=== PATIENT | female | born 1950 | race Caucasian/White ===

== ENCOUNTER → 2023-12-01 07:15 | Outpatient (REF) | payer OTHER, SELFPAY | LOC: RAD 07:15 | PROVIDERS: ATTENDING PHYSICIAN Student in an Organized Health Care Education/Training Program; FAMILY PHYSICIAN Family Medicine | DX: M25.572 Pain in left ankle and joints of left foot (principal) | CPT/HCPCS: 73700 ==

== ENCOUNTER 2023-12-06 06:24 | Day surgery (SDC) | payer OTHER, SELFPAY ==
[2023-12-06] VITALS (7 sets, daily range): BP systolic 92–106; BP diastolic 70–76; BMI 25.5
[2023-12-06] MEDS: NORMOSOL-R 1000 IV (12:25)
[2023-12-06 13:17] LABS: Blood Urea Nitrogen 20 mg/dl (7-17); Estimated Creatinine Clearance 83 ml/min; Glucose 107 mg/dl (70-99)
[2023-12-06] MEDS: SUBLIMAZE 50 MCG IV ×2 (17:27→17:37)
== END 2023-12-06 18:45 | disposition home or self-care (01) ==
LOC: SDS 06:24
PROVIDERS: ATTENDING PHYSICIAN Student in an Organized Health Care Education/Training Program
DX: S82.872A Displaced pilon fracture of left tibia, initial encounter for closed fracture (principal); W19.XXXA Unspecified fall, initial encounter
CPT/HCPCS: 27828; C1713; 73600; 76000; 82565; 82947; 84520; 85018

== ENCOUNTER → 2024-10-05 07:23 | Outpatient (REF) | payer OTHER, SELFPAY | LOC: RAD 07:23 | PROVIDERS: ATTENDING PHYSICIAN Family Medicine; FAMILY PHYSICIAN Physician Assistant | DX: M54.50 Low back pain, unspecified (principal); M51.360 Other intervertebral disc degeneration, lumbar region with discogenic back pain only; M25.50 Pain in unspecified joint; M25.569 Pain in unspecified knee; M79.643 Pain in unspecified hand | CPT/HCPCS: 72110; 73130; 73564 ==

== ENCOUNTER 2024-10-10 10:15 | Emergency (ER) | payer OTHER, SELFPAY ==
[2024-10-10 10:27] VITALS: BP 130/90
[2024-10-10 12:00] VITALS: BP 125/82
[2024-10-10 12:06] LABS: % Basophils 0.6 % (0-2); % Immature Granulocytes 0.5 % (0-0.5); % Lymphocytes 18.2 % (20.5-51.1); % Monocytes 10.2 % (1.7-9.3); % Neutrophils 65.5 % (42.2-75.2); Absolute Eosinophils 0.3 10^3/uL (0-0.7); Absolute Lymphocytes 1.2 10^3/uL (1.2-3.4); Absolute Monocytes 0.7 10^3/uL (0.1-0.6); Absolute Neutrophils 4.2 10^3/uL (1.4-6.5); Hematocrit 38.9 % (37.0-47.0); Hemoglobin 12.9 g/dL (12.0-16.0); Mean Corp Hgb Conc. 33.2 g/dL (33.0-37.0); Mean Corpuscular Hgb 32.4 pg (27.0-31.0); Mean Corpuscular Volume 97.7 fL (81.0-99.0); Mean Platelet Volume 9.8 fL (7.4-10.4); Nucleated Red Blood Cells % 0 %; Platelet Count 178 10^3/uL (130-400); Red Blood Cell Count 3.98 10^6/uL (4.20-5.40); Red Cell Dist. Width 17.2 % (11.5-14.5); White Blood Cell Count 6.4 10^3/uL (4.8-10.8)
[2024-10-10 13:12] LABS: ALT (SGPT) 19 U/L (0-35); AST (SGOT) 37 U/L (14-36); Albumin 3.5 g/dl (3.5-5.0); Alkaline Phosphatase 69 U/L (38-126); Blood Urea Nitrogen 16 mg/dl (7-17); Carbon Dioxide 27 mmol/L (22-30); Chloride 104 mmol/L (98-107); Glucose 109 mg/dl (70-99); Potassium 4.3 mmol/L (3.5-5.1); Sodium 139 mmol/L (135-145); Total Bilirubin 0.8 mg/dl (0.2-1.3); Total Protein 6.1 g/dl (6.3-8.2); eGFR > 60.00
[2024-10-10 14:10] LABS: Erythrocyte Sed Rate 13 mm/hour (0-20)
--- NOTE | 2024-10-10 14:36 | ED.GENMED ---
History of Present Illness
<Dalton Reyna MD - Last Filed: 10/10/24 14:40>
General
Chief Complaint: Back Pain
Time Seen by Provider: 10/10/24 11:18
<Kieran Burton PA-C - Last Filed: 10/10/24 15:39>
General
Source: patient
Exam Limitations: none
History of Present Illness
History of Present Illness:
74-year-old female with history of breast cancer presents complaining of worsening lower back pain with associated progressively worsening weakness and numbness to the legs bilaterally. She denies any bowel or bladder dysfunction. She denies any
recent fever. She states she has been shuffling while walking. She talked to her doctor and doctor sent her in for an MRI of her back. She tried ibuprofen for her back discomfort which helped somewhat but she is concerned about the progressive
numbness and weakness to the legs. She states the numbness started in the lower aspect of her legs and traveled up from there.
Past History
<Dalton Reyna MD - Last Filed: 10/10/24 14:40>
Past History
ED Past Medical History: Asthma, Cancer and HTN
ED Past Surgical History: None and Other
Social History
Tobacco: Non-smoker
Alcohol: Occasional
Drug: None
Personal:
Living: with family
Employment: Retired
Family History
Family History: Other (Noncontributory)
Phy Exam
<Kieran Burton PA-C - Last Filed: 10/10/24 15:39>
Physical Exam
Physical Exam:
General: Well-appearing female no acute respiratory distress
HEENT: Normocephalic atraumatic
Heart: Regular rate and rhythm no murmurs
Lungs: Clear no wheeze
Neurologic exam: Alert and oriented. Patient walks with a shuffling gait but has to lean against the wall to do so. She has 4 out of 5 weakness diffusely about her legs. Bilateral patellar reflexes are 1+ Achilles reflexes are diminished.
Sensation to light touch bilateral lower extremities. No clonus.
Skin is warm no rash
Course
<Dalton Reyna MD - Last Filed: 10/10/24 14:40>
Orders/Labs/Results
Orders:
Orders
10/10/24 11:50
CRP [C-Reactive Protein] Urgent
Complete Blood Count/With Diff Urgent
Sed Rate [Erythrocyte Sed Rate] Urgent
10/10/24 11:53
MR Lumbar Without Contrast Urgent
Comment:
Reason For Exam: back pain, leg weakness, gait abnormality
Recent pill cam endoscopy?: No
10/10/24 12:35
Comprehensive Metabolic Panel Urgent
10/10/24 14:42
NEUROLOGY CONSULT Urgent
Consulting Provider: Melvin Sanchez
Was physician already notified: Yes
Reason for consult: weakness
10/10/24 17:32
Pft Nif [RESP] Urgent
Vital Capacity [RESP] Urgent
Quantity: 1
Abnormal Lab Results
10/10/24 10/10/24
11:50 12:35
RBC 3.98 L 10^6/uL
(4.20-5.40)
MCH 32.4 H pg
(27.0-31.0)
RDW 17.2 H %
(11.5-14.5)
Absolute Monos (auto) 0.7 H 10^3/uL
(0.1-0.6)
Lymphocytes % 18.2 L %
(20.5-51.1)
Monocytes % 10.2 H %
(1.7-9.3)
Glucose 109 H mg/dl
(70-99)
AST 37 H U/L
(14-36)
C-Reactive Protein 12.60 H mg/L
(0.0-10.00)
Total Protein 6.1 L g/dl
(6.3-8.2)
10/10/24 11:50
10/10/24 12:35
Vital Signs
Initial and Last Documented VS:
Initial Vital Signs
Temp Pulse Resp BP Pulse Ox
98.4 F 99 16 130/90 96
10/10/24 10:27 10/10/24 10:27 10/10/24 10:27 10/10/24 10:27 10/10/24 10:27
Last Documented Vital Signs
Temp Pulse Resp BP Pulse Ox
98.4 F 101 18 125/82 98
10/10/24 10:27 10/10/24 18:21 10/10/24 18:21 10/10/24 18:21 10/10/24 18:21
<Kieran Burton PA-C - Last Filed: 10/10/24 15:39>
Orders/Labs/Results
Orders:
Orders
10/10/24 11:50
CRP [C-Reactive Protein] Urgent
Complete Blood Count/With Diff Urgent
Sed Rate [Erythrocyte Sed Rate] Urgent
10/10/24 11:53
MR Lumbar Without Contrast Urgent
Comment:
Reason For Exam: back pain, leg weakness, gait abnormality
Recent pill cam endoscopy?: No
10/10/24 12:35
Comprehensive Metabolic Panel Urgent
10/10/24 14:42
NEUROLOGY CONSULT Urgent
Consulting Provider: Melvin Sanchez
Was physician already notified: Yes
Reason for consult: weakness
10/10/24 17:32
Pft Nif [RESP] Urgent
Vital Capacity [RESP] Urgent
Quantity: 1
Abnormal Lab Results
10/10/24 10/10/24
11:50 12:35
RBC 3.98 L 10^6/uL
(4.20-5.40)
MCH 32.4 H pg
(27.0-31.0)
RDW 17.2 H %
(11.5-14.5)
Absolute Monos (auto) 0.7 H 10^3/uL
(0.1-0.6)
Lymphocytes % 18.2 L %
(20.5-51.1)
Monocytes % 10.2 H %
(1.7-9.3)
Glucose 109 H mg/dl
(70-99)
AST 37 H U/L
(14-36)
C-Reactive Protein 12.60 H mg/L
(0.0-10.00)
Total Protein 6.1 L g/dl
(6.3-8.2)
10/10/24 11:50
10/10/24 12:35
Vital Signs
Initial and Last Documented VS:
Initial Vital Signs
Temp Pulse Resp BP Pulse Ox
98.4 F 99 16 130/90 96
10/10/24 10:27 10/10/24 10:27 10/10/24 10:27 10/10/24 10:27 10/10/24 10:27
Last Documented Vital Signs
Temp Pulse Resp BP Pulse Ox
98.4 F 101 18 125/82 98
10/10/24 10:27 10/10/24 18:21 10/10/24 18:21 10/10/24 18:21 10/10/24 18:21
<Cher Gusman DO - Last Filed: 10/10/24 20:02>
Orders/Labs/Results
Orders:
Orders
10/10/24 11:50
CRP [C-Reactive Protein] Urgent
Complete Blood Count/With Diff Urgent
Sed Rate [Erythrocyte Sed Rate] Urgent
10/10/24 11:53
MR Lumbar Without Contrast Urgent
Comment:
Reason For Exam: back pain, leg weakness, gait abnormality
Recent pill cam endoscopy?: No
10/10/24 12:35
Comprehensive Metabolic Panel Urgent
10/10/24 14:42
NEUROLOGY CONSULT Urgent
Consulting Provider: Melvin Sanchez
Was physician already notified: Yes
Reason for consult: weakness
10/10/24 17:32
Pft Nif [RESP] Urgent
Vital Capacity [RESP] Urgent
Quantity: 1
Abnormal Lab Results
10/10/24 10/10/24
11:50 12:35
RBC 3.98 L 10^6/uL
(4.20-5.40)
MCH 32.4 H pg
(27.0-31.0)
RDW 17.2 H %
(11.5-14.5)
Absolute Monos (auto) 0.7 H 10^3/uL
(0.1-0.6)
Lymphocytes % 18.2 L %
(20.5-51.1)
Monocytes % 10.2 H %
(1.7-9.3)
Glucose 109 H mg/dl
(70-99)
AST 37 H U/L
(14-36)
C-Reactive Protein 12.60 H mg/L
(0.0-10.00)
Total Protein 6.1 L g/dl
(6.3-8.2)
10/10/24 11:50
10/10/24 12:35
Vital Signs
Initial and Last Documented VS:
Initial Vital Signs
Temp Pulse Resp BP Pulse Ox
98.4 F 99 16 130/90 96
10/10/24 10:27 10/10/24 10:27 10/10/24 10:27 10/10/24 10:27 10/10/24 10:27
Last Documented Vital Signs
Temp Pulse Resp BP Pulse Ox
98.4 F 101 18 125/82 98
10/10/24 10:27 10/10/24 18:21 10/10/24 18:21 10/10/24 18:21 10/10/24 18:21
<Kieran Burton PA-C - Last Filed: 10/10/24 15:39>
MDM/Problems Addressed
Differential Diagnosis Includes:
Patient with lower back pain history of breast cancer and now progressive weakness and numbness to the legs. With symptoms concerning for cauda equina or space-occupying lesion in the lumbar spine versus epidural hematoma. No fever to suggest
infectious source. Discussed with emergency room attending and ordered MRI of the lumbar spine. Neurology consulted.
<Cher Gusman DO - Last Filed: 10/10/24 20:02>
*Critical Care Note
Total Time (30-74mins, 75-104mins- exclusive of procedures): Not Applicable
<Cher Gusman DO - Last Filed: 10/10/24 20:02>
Update Note
Update Note:
Attending Signout Note (Cher Gusman DO)
16:00 -assuming care of patient, 74-year-old female with prior history of breast cancer presenting for low back pain with progressively worsening symptoms. Patient reports for the past week she has had worsening weakness and numbness to her lower
extremities, sent in by her doctor for concern of central spinal process. On exam noted to have diminished strength and sensation to bilateral lower extremities with decreased reflexes. This reason patient pending MRI of the lumbar spine and
neurology consultation. Patient without any bowel or bladder symptoms.
17:40 -MRI returned with disc protrusion from L2-L3 with some central canal stenosis. There is also recess stenosis from L5-S1 with slight compression of the left S1 nerve root. No significant sign of cord compression. No fractures. On
reassessment, patient is able to walk. She notes that her main concern is numbness to her legs that started in her feet and has since traveled up her legs. Denies any significant respiratory symptoms. 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
Guillain-Leal� given her symptoms. Additionally he felt that patient was short of breath. Patient denying respiratory symptoms, however does get dyspneic with talking. Patient states her baseline. Patient advised admission by neurology and
myself for further testing including lumbar puncture, EMG. She is adamantly declining. 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 She understands the risk of Guillain-Leal� including eventual paralysis and respiratory arrest. She would like to go home
for follow-up. Explained that if her symptoms are continuing to travel upward with additional respiratory symptoms, immediate return to the emergency department. Patient and verbalizing understanding. Patient will sign out AGAINST MEDICAL
ADVICE.
ED Attending Note
<Dalton Reyna MD - Last Filed: 10/10/24 14:40>
ED Attending Note
Patient seen and examined by attending physician: Yes
ED Attending Note:
I have seen and evaluated the patient with a [id number] encounter. I have spoken to the advance practicer provider and involved in the medical history, the physical exam, medical decision making.
Evaluation and management service: agree unless noted differently below.
Results interpretation: agree unless noted differently below.
Focused HPI: 74-year-old female with history as noted presents to the ER for evaluation of back pain, leg weakness and numbness. Patient says that she has had back pain for a year diagnosed as arthritis however the past few weeks she feels it is
marcella worse�she says the pain is so bad that she cannot even get up to do normal activities like go to the grocery store over the past few weeks. She says that over the past 2 weeks she has noticed progressive numbness and weakness in her legs.
She says that initially it started as very mild distal numbness on the dorsum of the feet and over the past few days she has had numbness of the entire legs bilaterally up to her lower abdomen and significant weakness and trouble walking. She
discussed with her PCP who referred her to the emergency room for assessment. She denies any incontinence of bowel or bladder. She denies any fall or trauma. She has not had any fever or chills. Denies any other complaints.
Physical exam: Awake alert not in distress. She has some mild tenderness in the lower thoracic/upper lumbar spine paraspinal region; she has tenderness L5-S1 midline; patient walks with a shuffling gait. She has weakness on dorsiflexion of the
feet left greater than right as well as some weakness on flexion at the hip and slightly diminished DTRs patellar and bilateral lower extremities.
Medical Decision Makin-year-old female presents with increasing back pain, weakness and numbness in the legs, ambulatory dysfunction�chronic pain worse over the past few weeks and numbness and weakness progressive x 2 weeks. Vitals and exam as
above. Will plan for MRI of the lumbar spine. Send screening labs and inflammatory markers. Consult neurology. Reassess after the above.
-
Portions of this chart may have been created with voice recognition software.� Occasional wrong word or��sound alike� substitutions may have occurred due to the inherent limitations of voice recognition software.
Discharge Plan
Departure
Patient Disposition: Against Medical Advice
Date of Disposition: 10/10/24
Time of Disposition: 17:46
Patient with high blood pressure during this ER visit?: Yes
Condition: Serious
Discharge Problem:
Bilateral leg numbness
Instructions: Herniated Disc (DC), Guillain-[place] Syndrome (DC)
Prescriptions:
New
oxycodone-acetaminophen [Percocet] 5-325 mg tablet
1 tab PO Q8H PRN (Reason: Pain) Qty: 6 0RF
No Action
sertraline 100 MG tablet
100 mg PO DAILY
naproxen sodium [Aleve] 220 MG tablet
220 mg PO PRN PRN (Reason: pain)
clonazepam 1 MG tablet
1 mg PO PRN PRN (Reason: sleep)
amlodipine 10 MG tablet
10 mg PO DAILY
albuterol sulfate 18 GM HFA aerosol inhaler
2 puff IH PRN PRN (Reason: asthma)
prednisone 5 mg Tablet
5 mg PO DAILY
omeprazole 20 mg Capsule,Delayed Release(Dr/Ec)
20 mg PO DAILY
epinephrine [Epi E-Z Pen] 0.3 mg/0.3 mL Auto-Injector
0.3 mg IM DIRECTED
Vitamin D3
1 dose PO DAILY
Referrals:
Kuldeep Kwong DO [Active] -
Stevenson Nguyen DO [Family Provider] -
Activity Restrictions/Additional Instructions:
You were seen in the emergency department for numbness to her extremities
You had an MRI that did show some disc protrusions in your back which are likely causing your back pain and may be causing some numbness to your your lower extremities. However, you were additionally seen by neurology with valid concerns of
Guillain-Leal� syndrome, which is a condition that can cause paralysis and difficulty breathing. You were advised to stay in the hospital for further testing including a lumbar puncture and muscle testing called EMG. You declined understanding the
risk that your numbness could worsen, causing paralysis and inability to breathe on your own which is a medical emergency. Please return immediately to the emergency department with any progression of symptoms or if you change your mind regarding
admission.
Please follow-up closely with your primary care physician.
Additionally return to the emergency department for any development of chest pain, difficulty breathing, abdominal pain with persistent vomiting and inability to tolerate food or liquid by mouth (concern for dehydration), weakness, headache or
confusion, fever greater than 100.4, or any additional symptoms that are concerning to you.
Thank you for choosing [facility].
Interventions
Interventions:
*Risk Screen - Suicide Last Done: 10/10/24 10:27
*General Assessment Last Done: 10/10/24 10:27
*Neglect/Abuse Screening Last Done: 10/10/24 10:27
ED- Fall Risk Assessment Last Done: 10/10/24 11:07
*ED COVID-19 Vaccine History Last Done: 10/10/24 10:27
*Nursing Disposition Last Done: 10/10/24 18:21
ED-Musculoskeletal Assessment Last Done: 10/10/24 11:07
Discharge Date and Time
Discharge Date/Time: 10/10/24 18:22
Print Language: TURKMEN
--- NOTE | 2024-10-10 17:52 | CON.NEURO ---
Neuro Assessment/Plan
Assessment
MRI lumbar showing L2-L3 spinal stenosis, disc bulge; left S1 pinched nerve root
74 year old woman with longstanding back pain presenting with 10 days of ascending weakness/numbness.
I have serious concerns for GBS, and with single breath count to 21, I have concerns for respiratory involvement.
I spoke with her about admission for EMG and possible treatment with IVIG, she does not want to be admitted and understands risks including worsening weakness to the point of paralysis, and worsening of respiratory function
Plan
check NIF/vital capacity
spoke to patient about returning if her symptoms worsen
Consultation
Order
Date of Consultation: 10/10/24
Requesting Provider:
Reason for Consult:
Subjective/Objective
Subjective Data
Date of Service: October 10, 2024
74 year old woman with longstanding back pain, recently worsening. 10 days of weakness, numbness starting in her feet and ascending. shuffling when she walks the past few days.
denies bowel or bladder symptoms, denies speech or respiratory symptoms
Objective Data
Vital Signs
Temp Pulse Resp BP Pulse Ox
36.9 C 99 16 130/90 96
10/10/24 10:27 10/10/24 10:27 10/10/24 10:27 10/10/24 10:27 10/10/24 10:27
Lab Results
10/10/24 11:50
10/10/24 12:35
Sodium 139 mmol/L (135-145) 10/10/24 12:35
Potassium 4.3 mmol/L (3.5-5.1) 10/10/24 12:35
BUN 16 mg/dl (7-17) 10/10/24 12:35
Glucose 109 mg/dl (70-99) H 10/10/24 12:35
Calcium 9.0 mg/dl (8.4-10.2) 10/10/24 12:35
Patient Allergies
bee venom protein (honey bee) Allergy (Verified 10/10/24 10:30)
Swelling, rash
cat dander Allergy (Verified 10/10/24 10:30)
runny nose,itchy eyes
codeine Allergy (Verified 10/10/24 10:30)
Hives
house dust mite Allergy (Verified 10/10/24 10:30)
runny nose,itchy eyes
nut - unspecified Allergy (Verified 10/10/24 10:30)
THROAT CLOSES WITH MACADAMIA NUTS
Sulfa (Sulfonamide Antibiotics) Allergy (Verified 10/10/24 10:30)
SEE BELOW
Physical Exam
-
AAOx3, speech clear, language intact
face symmetric
full strength b/l UE, 4/5 strength b/l LE, tone decreased
decreased pin prick below T8
reflexes 1+ upper, 1+ left knee, absent right knee, absent ankles
Medications
-
Home Medications
�Medication �Instructions �Recorded
naproxen sodium 220 mg tablet 220 mg PO PRN PRN pain 05/16/14
(Aleve)
sertraline 100 mg tablet 100 mg PO DAILY 05/16/14
albuterol sulfate 90 mcg/actuation 2 puff IH PRN PRN asthma 12/12/20
aerosol inhaler
amlodipine 10 mg tablet 10 mg PO DAILY 12/12/20
clonazepam 1 mg tablet 1 mg PO PRN PRN sleep 12/12/20
omeprazole 20 mg capsule,delayed 20 mg PO DAILY 07/27/23
release
prednisone 5 mg tablet 5 mg PO DAILY PMR 07/27/23
Vitamin D3 1 dose PO DAILY 12/03/23
epinephrine 0.3 mg/0.3 mL 0.3 mg IM DIRECTED bee stings 12/03/23
injection, auto-injector
[2024-10-10 18:21] VITALS: BP 125/82
== END 2024-10-10 18:22 | disposition left against medical advice (07) ==
LOC: EMR 10:15
PROVIDERS: Emergency Medicine; Physician Assistant; CONSULT PHYSICIAN Psychiatry & Neurology Clinical Neurophysiology; EMERGENCY PHYSICIAN Student in an Organized Health Care Education/Training Program; FAMILY PHYSICIAN Family Medicine
DX: R20.0 Anesthesia of skin (principal); I10 Essential (primary) hypertension; Z85.3 Personal history of malignant neoplasm of breast
CPT/HCPCS: 99284; 72148; 80053; 85025; 85652; 86140

== ENCOUNTER → 2024-11-14 09:30 | Outpatient (REF) | payer OTHER, SELFPAY | LOC: WDC 09:30 | PROVIDERS: ATTENDING PHYSICIAN Family Medicine | DX: N63.10 Unspecified lump in the right breast, unspecified quadrant (principal); N63.13 Unspecified lump in the right breast, lower outer quadrant | CPT/HCPCS: 76642; 77062; 77066 ==

== ENCOUNTER → 2024-11-29 10:52 | Outpatient (REF) | payer OTHER, SELFPAY | LOC: RAD 10:52 | PROVIDERS: ATTENDING PHYSICIAN Family Medicine | DX: Z13.820 Encounter for screening for osteoporosis (principal) | CPT/HCPCS: 77080 ==

== ENCOUNTER 2025-04-12 18:23 | Inpatient (IN) | payer OTHER, SELFPAY ==
[2025-04-12] VITALS (16 sets, daily range): BP systolic 86–118; BP diastolic 40–91; BMI 25.5
[2025-04-12 16:04] LABS: ALT (SGPT) 21 U/L (0-35); AST (SGOT) 26 U/L (14-36); Albumin 3.6 g/dl (3.5-5.0); Alkaline Phosphatase 116 U/L (38-126); Blood Urea Nitrogen 12 mg/dl (7-17); Calcium 8.1 mg/dl (8.4-10.2); Carbon Dioxide 20 mmol/L (22-30); Chloride 106 mmol/L (98-107); Estimated Creatinine Clearance 60 ml/min; Glucose 99 mg/dl (70-99); Potassium 4.2 mmol/L (3.5-5.1); Sodium 137 mmol/L (135-145); Total Protein 6.4 g/dl (6.3-8.2); eGFR > 60.00
[2025-04-12 16:09] LABS: Hematocrit 41.5 % (37.0-47.0); Hemoglobin 13.9 g/dL (12.0-16.0); Mean Corp Hgb Conc. 33.5 g/dL (33.0-37.0); Mean Corpuscular Volume 97.4 fL (81.0-99.0); Nucleated Red Blood Cells % 0.2 %; Red Cell Dist. Width 14.5 % (11.5-14.5)
[2025-04-12 16:20] LABS: Troponin I 0.132 ng/ml
--- NOTE | 2025-04-12 16:50 | ED.GENMED ---
History of Present Illness
General
Chief Complaint: Breathing Problem
Source: patient
Exam Limitations: none
Time Seen by Provider: 04/12/25 15:36
Nursing documentation reviewed up to this point in time: agreed with
History of Present Illness
History of Present Illness:
75-year-old female with a past medical history of hypertension, asthma/COPD, history of breast cancer who presents to the emergency department for evaluation of shortness of breath and rib pain. Patient reports that about a month ago she had a
mechanical fall. She says she fell forward and grabbed onto a chair and hit her left ribs on the chair as she fell. She says she has had pain in the left ribs since although it seems to be generally improving. Over the past week or so she started
to develop increasing shortness of breath. Breathing was worsening which prompted ER visit. She has had mild cough. She denies any fever or chills at present although she reports 2 weeks ago she had 48-hour episode of fever associated with
vomiting and diarrhea. GI symptoms have resolved. She has not noticed any swelling or pain in the legs. She denies any other acute complaints. She denies any head strike from fall, denies being on any blood thinners.
Past History
Past History
ED Past Medical History: Asthma, Cancer and HTN
ED Past Surgical History: None and Other
Social History
Tobacco: Non-smoker
Alcohol: Occasional
Drug: None
Personal:
Living: with family
Employment: Retired
Family History
Family History: Other (Noncontributory)
Review of Systems
Review of Systems
All Other Systems: ROS reviewed and negative except as documented in HPI and ROS
Constitutional: Denies fever or chills
Respiratory: Reports cough and trouble breathing
Cardiac: Reports chest pain
ABD/GI: Denies abdominal pain, nausea, vomiting or diarrhea
: Denies flank pain
Musculoskeletal: Denies joint pain, neck pain or back pain
Neurological: Denies dizzy or headache
Phy Exam
Physical Exam
Physical Exam:
General: Awake, alert, oriented x3; mild respiratory distress
Head: Normocephalic, atraumatic
Eyes: Conjunctiva normal, PERRL bilaterally
Throat: Airway intact, handling secretions
Neck: Trachea midline, no cervical spine tenderness, no JVD
Lungs: Patient has tachypnea, conversationally dyspneic; she is hypoxic requiring 2 L nasal cannula; she has expiratory wheezing most pronounced at the lung bases
Heart: Tachycardia with regular rhythm, no murmurs, gallops, or rubs; mild left anterior lower rib tenderness; no bruising noted, no crepitus
Abd: Soft, non distended, nontender
Neuro: Grossly intact
Skin: no rash
Extremities: Atraumatic, no edema in extremities, equal pulses in all extremities
Scores
Heart Failure Risk
Heart Failure Risk Score: Not Applicable
Heart Score for Chest Pain Patients
STEMI patient?: Not applicable
Withdrawal Assessment of Alcohol
Withdrawal Assessment Completed?: Not applicable
Course
Orders/Labs/Results
Orders:
Orders
04/12/25 15:40
Electrocardiogram (*1) Urgent
Reason for Study: Shortness of Breath
EKG- Treatment ONCE
04/12/25 15:41
CMP [Comprehensive Metabolic Panel] Urgent
Complete Blood Count/With Diff Urgent
NT-proBNP Urgent
Comment: ADD ON
Troponin I Urgent
04/12/25 15:49
CR Chest - 2 Views Urgent
Comment:
Reason For Exam: cough, sob
04/12/25 16:33
Add On- LAB Urgent
Tests Added?: pro BNP
CT Chest PE Study Urgent
Comment:
Reason For Exam: chest pain, hypoxic, SOB
04/12/25 16:53
Ipratropium/Albuterol Sulfate [Duoneb] 3 ml INH R NOW STA
04/12/25 17:15
PT/INR [Prothrombin Time] Urgent
PTT Urgent
Heparin 6,100 units IV NOW STA
Heparin 00746 Units/250 ml 25,000 units in 250 ml IV PER PROTOCOL
Weight to be used for heparin protocol in kilograms (kg):: 76.1
Protocol:: DVT/PE
PTT Goal Range to be used:: PTT 73 to 111 seconds
Order type:: Initial
INITIAL Infusion Dose (UNITS/KG/hr) & then follow protocol:: 18 units/kg/hr
Infusion Dose in UNITS/hr & then follow protocol (UNITS/hr):: 1,400
INFUSION RATE in mL/hr & then follow protocol (mL/hr):: 14
For DVT/PE algorithm, re-bolus for low PTT?: Yes
PTT less than or equal to 64 seconds:: Re-bolus 80 units/kg (max 10,000units). Increase by 300 units/hr
(+ 3mL/hr)
PTT 64.1 to 72.9 seconds:: Re-bolus 40 units/kg (max 5,000 units). Increase by 200 units/hr
(+ 2mL/hr)
PTT 73 to 111 seconds:: Target Range. No change in rate.
PTT 111.1 to 130.9 seconds:: Decrease rate by 200 units/hr (- 2 mL/hr)
PTT 131 to 199.9 seconds:: HOLD for 1 hr. Then decrease by 200 units/hr (- 2mL/hr)
PTT greater than or equal to 200 seconds:: HOLD for 2 hrs & Notify Provider. Then decrease by 300 units/hr
(- 3mL/hr)
Lab follow-up:: Each change, PTT q6h until 2 consecutive are therapeutic. Then
PTT daily.
Nursing to Place Non Medication Order As Directed
Physician Order: PTT 6 hours after initial start of Heparin infusion
04/12/25 17:25
Heparin 3,000 units IV PRN PRN
Heparin 6,100 units IV PRN PRN
04/12/25 17:36
[facility]AD CONSULT Urgent
Consulting Provider: Haris Reese
Was physician already notified: Yes
Procedure being ordered, including laterality if applicable: catheter directed thrombolysis
Acknowledgement that appropriate orders are entered: Yes
PULMONARY CONSULT Urgent
Consulting Provider: Krystyna Johnson
Was physician already notified: Yes
Abnormal Lab Results
04/12/25
15:41
MCH 32.6 H pg
(27.0-31.0)
Abs Immat Gran (auto) 0.1 H 10^3/uL
(0-0.05)
Absolute Monos (auto) 0.8 H 10^3/uL
(0.1-0.6)
Immature Gran % 0.6 H %
(0-0.5)
Carbon Dioxide 20 L mmol/L
(22-30)
Calcium 8.1 L mg/dl
(8.4-10.2)
Troponin I 0.132 H* ng/ml
04/12/25 15:41
04/12/25 15:41
Vital Signs
Initial and Last Documented VS:
Initial Vital Signs
BP Pulse Ox
97/71 91
04/12/25 15:26 04/12/25 15:26
Last Documented Vital Signs
Temp Pulse Resp BP Pulse Ox
36.9 C 109 24 113/82 91
04/12/25 15:29 04/12/25 16:30 04/12/25 16:30 04/12/25 16:23 04/12/25 16:52
MDM/Problems Addressed
Differential Diagnosis Includes:
Pneumonia, pneumothorax, rib fractures with hypoventilation, pulmonary embolism, congestive heart failure, asthma exacerbation/COPD
MDM/Problems Addressed:
75-year-old female presents for evaluation of increasing shortness of breath; she has associated mild cough has also had pain in her left ribs since a mechanical fall with trauma to the ribs 4 weeks ago. She is mildly hypotensive with a blood
pressure of 97/71. She is tachycardic with a heart rate in the 110s. She is tachypneic with respiratory rate 24-28. She is hypoxic to 89% on room air requiring 2 L nasal cannula. She is afebrile. Rest of her physical exam is as documented.
Will plan to place large-bore IVs and labs including a CBC and a CMP. Will check troponin and proBNP. Will check EKG, chest x-ray to start. She did have mild wheeze--can trial Duoneb. Will monitor closely reassess after the above.
Initial labs reviewed: CBC shows no clinically significant abnormalities. CMP shows marginal metabolic acidosis nongap. Her troponin is elevated to 0.132�will need to trend. proBNP is pending. Chest x-ray shows no acute disease. EKG shows sinus
rhythm with no acute ischemia. Given normal chest x-ray with chest pain, positive troponin and hypoxia will send for a CT chest to rule out pulmonary embolism.
CT reviewed in real-time appears to show bilateral pulmonary embolism�discussed with radiology they agree bilateral PE with right heart strain. PERT alert called by me. Patient remains tachycardic she is normotensive at present remains tachypneic,
only on 2 L of nasal cannula. Troponin was elevated. Discussed with interventional radiology and pulmonary to review case for consideration of intervention. Will start on heparin drip in the meantime. Discussed with hospitalist to facilitate
admission.
After reviewing case with pulmonary and interventional radiology, recommendation for catheter directed lysis. Updated patient. Updated hospitalist.
Chronic conditions affecting care:
Asthma/COPD
*Radiology
Radiology exam reviewed: preliminary read by ED provider and radiology read reviewed
*Pulse Oximetry
SaO2: 91
Nasal Cannula flow liters per minute: 2
Patient hypoxic: yes (89%)
*EKG
Interpreted by ED Provider?: Yes
Heart Rate: 109
Rate: tachycardiac
Rhythm: sinus and sinus tachycardia
[place]: normal axis
Interval: normal interval
QRS Pattern: normal QRS
Ischemia: other (inferior infarct, age undetermined)
*Critical Care Note
Total Time (30-74mins, 75-104mins- exclusive of procedures): 32
comment:
Critical care statement: A total of 32 minutes of critical care time was provided for this patient. This includes management of unstable vital signs, evaluation of the patient at bedside, frequent reassessment, discussion with
consultants/hospitalist, and review of pertinent medical records. This time was separate from time utilized to perform any aforementioned documented procedures
Data Reviewed
Review of Other/Old Records Reveals: Labs and Records
Source: patient and records
Patient Management
Discussion with other providers: Hospitalist (Discussed with hospitalist), Field Project Manager (Discussed with interventional radiology, discussed with pulmonology) and Radiologist (Discussed with the radiologist)
Escalation/DeEscalation of care consider admission/obs:
Admission indicated
ED Attending Note
-
Portions of this chart may have been created with voice recognition software.� Occasional wrong word or��sound alike� substitutions may have occurred due to the inherent limitations of voice recognition software.
Discharge Plan
Departure
Patient Disposition: Admit
Date of Disposition: 04/12/25
Time of Disposition: 17:22
Admit to doctor: Raegan
Presentation/result/management discussed w/ accepting MD/DO: Hospitalist
Discharge Problem:
Pulmonary embolism
Prescriptions:
No Action
naproxen sodium [Aleve] 220 MG tablet
220 mg PO DAILYPRN PRN (Reason: mild pain)
clonazepam 1 mg Tablet
1 mg PO HSPRN PRN (Reason: sleep)
Referrals:
Stevenson Nguyen DO [Family Provider, Family Practice]
Interventions
Interventions:
*Risk Screen - Suicide Last Done: 04/12/25 15:29
*General Assessment Last Done: 04/12/25 15:29
*Neglect/Abuse Screening Last Done: 04/12/25 15:29
*ED- Fall Risk Assessment Last Done: 04/12/25 15:29
*ED COVID-19 Vaccine History Last Done: 04/12/25 15:29
ED- Cardiac Assessment Last Done: 04/12/25 15:29
ED- Pulmonary Assessment Last Done: 04/12/25 15:29
Discharge Date and Time
Print Language: [place] CITIZEN
[2025-04-12] MEDS: DUONEB 3 ML INH (17:11)
--- NOTE | 2025-04-12 17:28 | HPS.HSE ---
Family Physician
-
Family Physician: Stevenson Nguyen
Chief Complaint
-
Shortness of breath
History of Present Illness
Patient is a 75-year-old female with past medical history significant for hypertension, asthma, COPD and Hx breast cancer who presented to [facility] ED for evaluation of shortness of breath. Patient reported that she had a mechanical fall about 1 month
ago where she reports falling forward and hit left ribs on chair. Since then she has had intermittent pain since then but reports overall it has been improving. However, she states that she has had increased shortness of breath over the past week
that has been consistent without relief so she decided an ED evaluation was warranted. Patient stated that approximately 2 weeks ago she had GI symptoms that have since resolved. She stated that she had vomiting, diarrhea and fever for approximately
48-hours and spontaneously resolved. Patient denies any leg pain or edema. Patient notes she takes no daily medications and will intermittently use clonazepam for sleep.
Medical History
Past Medical History
Past Medical History: Reports Other
Additional Past Medical History:
hypertension
asthma
COPD
diverticulosis
hyperlipidemia
mitral valve prolapse
mitral regurgitation
GERD
Hx breast cancer
Past Surgical History: Reports Other
Additional Past Surgical History:
R shoulder surgery
Lung biopsy Benign() 2004
MOHS
VNUS Closure
left breast bx dh 10/14/17
left breast lumpectomy-ER positive 11/09/17 dh
cataract B/L Surgery 2018
rt breast bx 04/2020 benign
Laparoscopy, left salpingo-oophorectomy, lysis of adhesions, Lysis of bowel adhesions June 20, 2003
US guided Right breast biopsy 05/2023
Right localized lumpectomy SLN mapping and biopsy oncoplastic closure 07/30/23
Social History
Tobacco: Former Smoker (quit 35 years ago )
Alcohol: Occasional (3x week)
Drug: None
Personal:
Living: With Family
Employment: Employed
Family History
Family History: Not pertinent
Allergies / Home Medications
Allergies reflects when Allergies were last updated in [facility].
Home Medications with original date entered in [facility]
Allergy/Medication List:
Allergies
Allergy/AdvReac Type Severity Reaction Status Date / Time
bee venom protein (honey bee) Allergy Swelling, Verified 10/10/24 10:30
rash
cat dander Allergy runny Verified 10/10/24 10:30
nose,itchy
eyes
codeine Allergy Hives Verified 10/10/24 10:30
house dust mite Allergy runny Verified 10/10/24 10:30
nose,itchy
eyes
nut - unspecified Allergy THROAT Verified 10/10/24 10:30
CLOSES
WITH
[place]
NUTS
Sulfa (Sulfonamide Allergy SEE BELOW Verified 10/10/24 10:30
Antibiotics)
Home Medications
naproxen sodium 220 mg tablet (Aleve) 220 mg PO DAILYPRN PRN mild pain 05/16/14
clonazepam 1 mg tablet 1 mg PO HSPRN PRN sleep 04/12/25
Review of Systems
-
History Source: Patient
Constitutional: Denies Fever or Chills
EENT: Denies Sore Throat
Respiratory: Reports Trouble Breathing; Denies Cough
Cardiac: Reports Chest Pain; Denies Palpitations
Abdomen/GI: Denies Abdominal Pain, Nausea, Vomiting or Diarrhea
: Denies Flank Pain or Difficulty Voiding
Musculoskeletal: Reports Other (left rib pain )
Skin: Denies Rash
Neurological: Denies Dizzy, Headache or Weakness
Hematologic/Lymphatic: Denies Bleeding or Bruising
Psych: Reports Calm
Physical Exam
Vital Signs
Vital Signs
Temp Pulse Resp BP Pulse Ox
98.4 F 109 24 113/82 91
04/12/25 15:29 04/12/25 16:30 04/12/25 16:30 04/12/25 16:23 04/12/25 16:52
Physical Exam
General: Well Developed, Well Nourished and Conversant
HEENT: NormoCephalic, Moist mucous membranes and Atraumatic
Respiratory: Wheezes (bilateral bases ) and Other (tachypnea, hypoxic requiring 2L NC)
Cardiac: S1/S2 and Regular Rhythm; No Murmur, Rub or Gallop
GI: Soft, Non Tender, Non Distended and Normal Bowel Sounds; No Organomegaly
Rectal: Deferred by Provider
Musculoskeletal: No Clubbing, No Cyanosis and No Edema
Skin: No Rash
Neuro: Nonfocal/grossly intact
Laboratory Results
-
04/12/25 15:41
04/12/25 15:41
Laboratory Results
Total Bilirubin 1.1 mg/dl (0.2-1.3) 04/12/25 15:41
AST 26 U/L (14-36) 04/12/25 15:41
ALT 21 U/L (0-35) 04/12/25 15:41
Alkaline Phosphatase 116 U/L (38-126) 04/12/25 15:41
Troponin I 0.132 ng/ml H* 04/12/25 15:41
Data Reviewed
-
Diagnostic Radiology: Report Reviewed by me (CXR: No acute cardiopulmonary process.)
CT Scan: Report Reviewed by me (Chest: Positive for bilateral pulmonary thromboembolism, moderate clot burden with secondary findings suggesting right heart strain. Mass in the right breast felt to represent a complex postoperative seroma on the
previous breast ultrasound. Continued follow-up imaging as recommended in that report)
Medical Tests (Nuc Med, Echo, EKG etc): Report Reviewed by me (EKG: SINUS TACHYCARDIA LOW VOLTAGE QRS INFERIOR INFARCT , AGE UNDETERMINED CANNOT RULE OUT ANTERIOR INFARCT , AGE UNDETERMINED)
Lab Data: Labs Reviewed by me (trop 0.132, pBNP 7910)
Impression/Plan
-
IMPRESSION/PLAN:
#shortness of breath likely 2/2 pulmonary embolism
EKG: SINUS TACHYCARDIA
LOW VOLTAGE QRS
INFERIOR INFARCT , AGE UNDETERMINED
CANNOT RULE OUT ANTERIOR INFARCT , AGE UNDETERMINED
CXR: No acute cardiopulmonary process.
Chest CT: Positive for bilateral pulmonary thromboembolism, moderate clot burden with secondary findings suggesting right heart strain.
Mass in the right breast felt to represent a complex postoperative seroma on the previous breast ultrasound. Continued follow-up imaging as recommended in that report.
- Admit to ICU
- Consult IR
- Consult Pulmonary
- Consult Straw Hat Machine Operator
- Heparin gtt pending IR intervention
#hypertension
#asthma
#COPD
Code status: full code
DVT prophylaxis: heparin gtt
[2025-04-12 17:33] LABS: INR 1.04; PT 14.1 Sec (11.4-14.6)
[2025-04-12 17:34] LABS: APTT 26.5 Sec (23.4-35.0)
[2025-04-12] MEDS: HEPARIN 6100 UNITS IV (17:40)
[2025-04-12] MEDS: HEPARIN 25000 UNITS/250 ML IV (17:40)
--- NOTE | 2025-04-12 18:03 | W.PN.UPDATE ---
Update Note
Progress Note Update
- Briefly, 75 year old female found to have acute bilateral PE with elevated biomarkers and findings of R heart strain on CT. Intermediate high risk PE. Denies prior DVT/PE. Increasing shortness of breath over the past two weeks. Denies leg
swelling, pain. Denies recent surgery, GI bleeding, recent stroke. Imaging reviewed - bilateral PE with larger burden on the right. There is some larger clot within the distal right main with occlusive clot extending into the more peripheral right
upper and lower lobes. Given the more peripheral nature of some of her clot, favor catheter directed tPA. No contra-indications to lytic therapy aside from advanced age. On exam, non-distressed talking in full sentences. On 2LNC, which she says has
significantly improved her breathing. Tachycardic in 110-120s. No lower extremity edema. Procedure reviewed with risks of intracranial/intraabdominal bleeding and arrhythmia.
a/p: 75 yo with intermediate high risk PE, no contra-indications for CDT. Will plan on CDT with tPA this evening and continue overnight with plan for lysis check in the morning.
--- NOTE | 2025-04-12 18:50 | W.PN.UPDATE ---
Update Note
Progress Note Update
This note serves as an addendum to the H&P by environmental health manager LALO�
Sakshi Valdez�
HPI�
75F HX b/l breast CA s/p Rt breast lumpectomy, s/p Rt partial mastectomy , HX hypertension, asthma, COPDseen at ER: - - evaluation of persistent SoB for past 1 week
- HX mechanical fall about 1 month ago where she reports falling forward and hit left ribs on chair.
- Since then she has had intermittent pain since then but reports overall it has been improving.
- approximately 2 weeks ago she had GI symptoms( vomiting, dirrhea) that have since resolved.
ROS
- denies any leg pain or edema.
- not on daily medications and will intermittently use clonazepam for sleep.
Relevant VS
Temp Pulse Resp BP Pulse Ox
98.4 F 121 28 86/40 93
04/12/25 15:29 04/12/25 18:00 04/12/25 16:37 04/12/25 17:03 04/12/25 18:00
PE
Gen: NAD
Neck: unable to see JVD
Lungs: tachypnea, hypoxic requiring 2L NC
Cor: tahycardia, No Murmur, Rub or Gallop
Abdomen:�soft NT NG
BURLAP WORKER: AAO3, NFND
MS: no edema
Psych: normal mood
Relevant Data�
04/12/25
15:41
MCH 32.6 H
Abs Immat Gran (auto) 0.1 H
Absolute Monos (auto) 0.8 H
Immature Gran % 0.6 H
Carbon Dioxide 20 L
Calcium 8.1 L
Troponin I 0.132 H*
CT Chest PE Study
- Positive for bilateral pulmonary thromboembolism, moderate clot burden with secondary findings suggesting right heart strain.
-Mass in the right breast felt to represent a complex postoperative seroma on the previous breast ultrasound.
-continued follow-up imaging as recommended in that report.
ASSESSMENT & PLAN
Acute symptomatic B/L PE with moderate clot burden causing clinical and CT evidence of acute RH strain
- associated dyspnea and hypoxia due to acute PE
- Tachycardia and hypotensive due to acute RH strin to moderate clot burden
- Upon evaluation by IR and Vp Integrity- IAT candidate
- No recent head injury, no recent surgery , no recent dental extraction
- Agree with Heparin gtt for now
- Post IAT , Heparin gtt per IR
- ICU admission post IAT
- Consult: IR and ICU
HX Breast CA - known to [facility]
Lt breast lumpectomy followed by XRT 5 yrs ago ( Known to Dr Herbert , Breast surgery)
Rt Breast - s/p partial mastectomy for intrductal CA ( known to [facility] )
- CT suggest mass in the right breast felt to represent a complex postoperative seroma on the previous breast ultrasound. - - - follow-up imaging as recommended in that report.
Esebntia hypertension
HX Asthma/ COPD
- cont. all OP meds
DVT Px: Heparin gtt
Full code
ICU
Total Critical Care Time_50 ____ minutes.
I was immediately available to the patient and staff. I personally examined, reviewed labs, diagnostic images/reports, interpretations, treatment plans, discussed patient care with other providers and family or caregivers (if patient is unable to
make decisions), entered orders as appropriate and documented the medical record.
--- NOTE | 2025-04-12 20:22 | W.PN.UPDATE ---
Update Note
Progress Note Update
- Catheter directed thrombolysis initiated. Had some difficulty accessing R CFV due to high origin so accessed greater saphenous vein with placement of 7F sheath.
- Pressures transduced: 34/16 mmHg (map 24). Arteriogram not performed. 7F APC catheter positioned in the distal right main pulmonary artery which corresponds with site of clot on CT.
- Small bolus dose of tPA given, 2.5 mm. tPA drip started at 0.5 mg/hr. Peripheral heparin at 600 units/hr. Heparin rate is not to be adjusted.
- Pt tolerated well. updated. Plan for lysis check tomorrow.
--- NOTE | 2025-04-12 21:00 | PTCARENOTE ---
vital signs pulled over in flowsheet from [id number], can verify accuracy starting at 2100 for shift. pt admit from IR- bedside handoff/lines & gtt verified in IR with RN. pt aaox3. denies pain. ST HR low 100s. B/L IV RUE patent- heparin gtt infusing
at 600u/hr. R fem sheath with tPA at 0.5 mg/hr. pt arrived on 4LNC, increased to 6LNC for sat 88%, denies SOB. CHG cloths, purewick in place, care ongoing.
[2025-04-12] MEDS: CATHFLO/ACTIVASE 1000 MG INF CATH (21:13)
--- NOTE | 2025-04-12 21:55 | PTCARENOTE ---
pt desat to 85% on 6LNC, RT to bedside to place on NC.
[2025-04-12 23:33] LABS: APTT 53.8 Sec (23.4-35.0)
[2025-04-13] VITALS (19 sets, daily range): BP systolic 86–137; BP diastolic 68–89; BMI 25.9
[2025-04-13 00:40] LABS: Troponin I 0.191 ng/ml
[2025-04-13 00:47] LABS: Magnesium 1.2 mg/dl (1.6-2.3)
[2025-04-13] MEDS: MAGNESIUM SULFATE 50 IV (02:07)
--- NOTE | 2025-04-13 03:43 | PTCARENOTE ---
bladder scanned for 229cc at 0300, voided on own soon after for 175cc and small amt immeasurable urine, no further changes in assessment.
[2025-04-13 05:41] LABS: ALT (SGPT) 16 U/L (0-35); AST (SGOT) 20 U/L (14-36); Albumin 2.9 g/dl (3.5-5.0); Alkaline Phosphatase 102 U/L (38-126); Blood Urea Nitrogen 12 mg/dl (7-17); Calcium 7.2 mg/dl (8.4-10.2); Carbon Dioxide 24 mmol/L (22-30); Chloride 108 mmol/L (98-107); Estimated Creatinine Clearance 60 ml/min; Glucose 98 mg/dl (70-99); Magnesium 1.9 mg/dl (1.6-2.3); Potassium 3.9 mmol/L (3.5-5.1); Sodium 140 mmol/L (135-145); Total Protein 5.4 g/dl (6.3-8.2); eGFR > 60.00
[2025-04-13 05:43] LABS: APTT 32.8 Sec (23.4-35.0)
[2025-04-13 06:07] LABS: Hematocrit 35.2 % (37.0-47.0); Hemoglobin 11.7 g/dL (12.0-16.0); Mean Corp Hgb Conc. 33.2 g/dL (33.0-37.0); Mean Corpuscular Volume 99.7 fL (81.0-99.0); Platelet Count 144 10^3/uL (130-400); Red Cell Dist. Width 14.5 % (11.5-14.5)
--- NOTE | 2025-04-13 07:08 | CON.INTV ---
Consultation
Consultation Request
Date/Time Consultation Requested: 04/12/2025
Date/Time Consultation Performed: 04/13/2025
Medical History
-
Chief Complaint: Dyspnea
History of Present Illness:
Patient is a very pleasant 75-year-old female with known history of breast cancer, COPD who presented to emergency room for shortness of breath. Reported history of fall about a month ago, hit her chest and since then has been having intermittent
chest wall pain. Over the last week however patient reports increasing shortness of breath without any cough, wheezing, expectoration, fever or chills. Patient also had brief episode of nausea, vomiting and diarrhea which subsequently resolved
without any intervention. In the emergency room patient was noted to be hypoxic as well as borderline low blood pressure. Initial x-ray was unremarkable and a CT was pursued which was suggestive of bilateral pulmonary embolism, right more than
left, with right heart strain. A PERT alert was called, case discussed with the emergency room and IR physician. In view of borderline hemodynamics, tachycardia, hypoxia, elevated biomarkers and right heart strain on imaging, catheter directed
therapies were pursued. Patient was taken to IR suite and had catheter directed thrombolysis initiated. Postprocedure, patient was admitted to ICU and shoe ironer consultation was requested for further input.
Past Medical History
Past Medical History: Reports Other
Additional Past Medical History:
hypertension
asthma
COPD
diverticulosis
hyperlipidemia
mitral valve prolapse
mitral regurgitation
GERD
Hx breast cancer
Past Surgical History: Reports Other
Additional Past Surgical History:
R shoulder surgery
Lung biopsy Benign() 2004 dh
MOHS
VNUS Closure
left breast bx dh 10/14/17
left breast lumpectomy-ER positive 11/09/17 dh
cataract B/L Surgery 2018
rt breast bx 04/2020 benign
Laparoscopy, left salpingo-oophorectomy, lysis of adhesions, Lysis of bowel adhesions June 20, 2003
US guided Right breast biopsy 05/2023
Right localized lumpectomy SLN mapping and biopsy oncoplastic closure 07/30/23
Social History
Tobacco: Former Smoker (quit 35 years ago )
Alcohol: Occasional (3x week)
Drug: None
Personal:
Living: With Family
Employment: Employed
Family History
Family History: Not pertinent
Allergies / Home Medications
Allergies / Home Medications
Allergies
Allergy/AdvReac Type Severity Reaction Status Date / Time
bee venom protein (honey bee) Allergy Swelling, Verified 10/10/24 10:30
rash
cat dander Allergy runny Verified 10/10/24 10:30
nose,itchy
eyes
codeine Allergy Hives Verified 10/10/24 10:30
house dust mite Allergy runny Verified 10/10/24 10:30
nose,itchy
eyes
nut - unspecified Allergy THROAT Verified 10/10/24 10:30
CLOSES
WITH
MACADAMIA
NUTS
Sulfa (Sulfonamide Allergy SEE BELOW Verified 10/10/24 10:30
Antibiotics)
Home Medications
�Medication �Instructions �Recorded �Confirmed �Last Taken �Type
naproxen sodium 220 mg tablet 220 mg PO DAILYPRN PRN mild pain 05/16/14 04/12/25 04/12/25 History
(Aleve)
clonazepam 1 mg tablet 1 mg PO HSPRN PRN sleep 04/12/25 04/12/25 04/10/25 History
Review of Systems
-
Hematologic/Lymphatic: Other (All 14 systems reviewed and negative except as stated above in the history of present illness.)
Vitals / Labs / Diagnostic Testing
Vital Signs
Temp Pulse Resp BP Pulse Ox
98.4 F 90 17 101/81 97
04/13/25 03:15 04/13/25 06:00 04/13/25 06:00 04/13/25 06:00 04/13/25 06:00
Lab Data
04/13/25 04:55
04/13/25 04:55
Laboratory Results
04/12/25 04/12/25 04/12/25
17:15 17:55 23:12
PT 14.1
INR 1.04
APTT 26.5 Cancelled 53.8 H
04/13/25
04:55
PT
INR
APTT 32.8
Diagnostic Testing:
Physical Exam
-
HEENT: Normocephalic
Cardiovascular: S1/S2
Respiratory: Clear
GI: Soft and Non Distended
Neurology: Awake and Alert
Skin: Warm
General: Comfortable
Assessment
-
#1. Acute Pulmonary embolism, bilateral with Right heart strain
- Right heart strain noted on imaging, troponin elevated at 0.191, BNP also elevated at 7910. Patient mildly hypoxic as well as borderline blood pressure.
- PERT was called on 04/12. Patient's imaging were reviewed, recommended catheter directed therapies. Patient was taken to IR suite and had catheter directed thrombolysis initiated.
- Right > Left clot burden on imaging. Currently heparin and alteplase infusing.
- Prior history of bilateral breast cancer, follows up with [facility]
- At this time, will favor long-term anticoagulation, outpatient follow-up with hematology/oncology service
- Check lower extremity dupplex exam.
#2. Acute hypoxic respiratory failure.
- Due to pulmonary embolism.
- Currently on mid flow, 12 L, saturating 96%. Patient subjectively reports shortness of breath is much improved
- Titrate O2 to keep saturation above 90%
#2. h/o COPD
- No wheezing on exam. Current presentation not consistent with COPD exacerbation
#3. H/o breast cancer.
- Invasive ductal carcinoma of left breast, s/p lumpectomy and radiation in 2017
- Ductal carcinoma in situ, right breast, s/p excision in 2020
- Invasive and in situ ductal carcinoma, right side, s/p segmental mastectomy plus sentinel lymph node biopsy
- Breast mass noted on CT scan felt to be postoperative seroma.
- Continue outpatient follow-up with oncology service, follows up at [facility].
Other medical diagnoses:
- 5 mm Lung nodule. stable since 2013
- Polymyalgia rheumatica, had been on Chronic Prednisone in the past, follows up with rheumatology
- Essential tremors
- History of breast cancer, left-sided, 2018. Ductal carcinoma in situ on right side, 2020.
Critical Care time 65 mins -- The patient is admitted for acute critical illness for the treatment of vital organ failure and/or prevention of further life-threatening conditions. Total care includes time spent in review of history, physical exam,
medications, hemodynamic/ventilator parameters, laboratory data, imaging and discussion with house staff, pharmacy, respiratory therapy, chinese medicine practitioner, and nursing.
Data:
CT-PE 03/2025: Positive for bilateral pulmonary thromboembolism, moderate clot burden with secondary findings suggesting right heart strain.
Mass in the right breast felt to represent a complex postoperative seroma on the previous breast ultrasound. Continued follow-up imaging as recommended in that report.
--- NOTE | 2025-04-13 08:43 | PTCARENOTE ---
Assumed care 0700.
Gtt/Thrombolysis reviewed with off going RN.
See assessment flowsheet for details
--- NOTE | 2025-04-13 10:03 | CM ---
Addendum entered by Evita Lott 04/13/25 17:32:
Patient cost for eliquis is 141.00$ per pharmacy [facility] in [place] patient will need coupon and to confirm ability to afford cost. CM will update physician.
Original Note:
Patient seen at bedside in ICU. Patient stated that she lives with her in a 3 story home. Patient has a nebulizer and a cane. Patient PCP is Dr. Nguyen and uses [facility]. Patient may need to determine cost of Eliquis per physician.
CM will continue to follow for discharge planning needs.
Plan; home with no needs; CM to clarify cost of Eliquis at request of physician
--- NOTE | 2025-04-13 10:04 | W.PN.HOSP.TC ---
Addendum entered and electronically signed by Christina Badillo MD 04/13/25 18:15:
I saw and evaluated the patient independently. I reviewed the resident�s note and agree with findings and plan as documented by Dr. Morrow.
GENERAL: well developed, well nourished, female in no apparent distress
HEENT: NC/AT--O2 NC
HEART: regular rate and rhythm, +S1, +S2
LUNGS : clear to auscultation bilaterally
ABDOM: soft, nontender, nondistended, + bowel sounds
EXT: no cyanosis, clubbing, or edema
NEUROLOGIC: grossly intact
Acute symptomatic bilateral pulmonary embolism--Tachycardic and hypotensive due to right heart strain due to moderate clot burden--IR consulted: catheter directed thrombolysis initiated on 04/12/25--Echo with EF 55-60% RV dilated and hypokinetic with
decreased RV function--sheath removed earlier today now on IV heparin with pricing for Eliquis done by
Back Pain likely due to herniated discs- Patient states it is difficult for her to lie straight on her back--tylenol
History of breast cancer--CT suggest mass in the right breast felt to represent a complex postoperative seroma on the previous breast US- Left breast lumpectomy followed by XRT 5 years ago- Right breast - s/p partial mastectomy for intraductal
cancer- Follow up imaging recommended
Essential hypertension--meds as able
Asthma/COPD--no exacerbations
Full code
DVT Proph-- heparin gtt
Original Note:
Today's Communication/Plan
-
IR following, lysis check today. Continue heparin gtt and tPA.
Echo ordered.
Tylenol for back pain.
Assessment / Plan
Assessment / Plan
Patient is a 75-year-old female with past medical history significant for hypertension, asthma, COPD and breast cancer s/p lumpectomy and partial mastectomy who presented to ED for evaluation of shortness of breath. Patient reported that she had a
mechanical fall about 1 month ago where she reports falling forward and hit left ribs on chair. Since then she has had intermittent pain since then but reports overall it has been improving. However, she states that she has had increased shortness
of breath over the past week that has been consistent without relief. She stated that she had vomiting, diarrhea and fever for 48-hours prior to arrival which spontaneously resolved. Patient denies any leg pain or edema. Patient notes she takes no
daily medications and will intermittently use clonazepam for sleep.
CT chest showed bilateral pulmonary thromboembolism, moderate clot burden with secondary findings suggesting right heart strain.Mass in the right breast felt to represent a complex postoperative seroma on the previous breast ultrasound.
Assessment/Plan:
# Acute symptomatic bilateral pulmonary embolism
-Tachycardic and hypotensive due to right heart strain due to moderate clot burden
-IR consulted: catheter directed thrombolysis initiated on 04/12/25. Had some difficulty accessing R CFV due to high original so accessed greater saphenous vein with placement of 7F sheath.
-Small bolus dose of tPA given, 2.5mm. tPA drip started at 0.5 mg/hour. Monitor for signs of bleeding, hypotension and hemoptysis
-Peripheral heparin at 600 units/hr. Heparin rate is not to be adjusted.
-Monitor for arrhythmias
-Plan for lysis check today 04/13/25 by IR.
-Order Echo.
# Back Pain likely due to herniated discs
- Patient states it is difficult for her to lie straight on her back
- Order Tylenol
# History of breast cancer
CT suggest mass in the right breast felt to represent a complex postoperative seroma on the previous breast US
- Left breast lumpectomy followed by XRT 5 years ago
- Right breast - s/p partial mastectomy for intraductal cancer
- Follow up imaging recommended
# Essential hypertension
# Asthma
# COPD
Full code
DVT Px: heparin gtt
Anticipated Discharge: > 48 hours
Subjective/Interval History
-
Date of Service: April 13, 2025
Patients states she breathing so much better than arrival to the ED. Mild nausea, but does not need anything for it. She is having back pain due to ruptured discs, and it is hard to lay straight on her back. No chest pain, abdominal pain, vomiting
or any other symptoms.
Objective Data
-
Labs:
Laboratory Results
04/12/25 04/13/25 04/13/25
23:12 04:55 09:58
WBC 6.4 Pending
Hgb 11.7 L Pending
Hct 35.2 L Pending
Plt Count 144 Pending
PT Pending
INR Pending
APTT 53.8 H 32.8
Sodium 140 Pending
Potassium 3.9 Pending
Chloride 108 H Pending
Carbon Dioxide 24 Pending
BUN 12 Pending
Creatinine 0.8 Pending
Glucose 98 Pending
Calcium 7.2 L Pending
Total Bilirubin 1.0 Pending
AST 20 Pending
ALT 16 Pending
Alkaline Phosphatase 102 Pending
Vital Signs:
Vital Signs
Temp Pulse Resp BP Pulse Ox
97.9 F 87 19 100/69 94
04/13/25 07:25 04/13/25 08:00 04/13/25 08:00 04/13/25 08:00 04/13/25 08:00
I&O
04/12/25 04/13/25 04/14/25
06:59 06:59 06:59
Intake Total 560 / 616 168 / 168
Output Total 175 / 175
Balance 385 / 441 168 / 168
Review of Systems
-
History Source: Patient
Constitutional: Reports No Symptoms
Respiratory: Reports No Symptoms
Cardiac: Reports No Symptoms
Abdomen/GI: Reports Nausea
Genitourinary: Reports No Symptoms
Musculoskeletal: Reports Other (Back pain)
Skin: Reports No Symptoms
Neuro: Reports No Symptoms
Endocrine: Reports No Symptoms
Hematologic / Lymphatic: Reports No Symptoms
Allergy / Immunology: Reports No Symptoms
Physical Exam
-
General: Well Developed, Well Nourished, No Apparent Distress, Comfortable and Conversant
HEENT: Normocephalic, Atraumatic, Moist Mucous Membranes and Anicteric
Respiratory: Clear to Auscultation
Cardiac: Regular Rhythm and S1/S2
GI: Soft, Nontender, Nondistended, Normal Bowel Sounds and No Hepatosplenomegaly
Musculoskeletal: No Clubbing, No Cyanosis, Edema, Right Lower Extrem (1+ pitting) and Edema, Left Lower Extrem (1+ pitting)
Skin: Warm, Dry and Other (ecchymosis over IV sites)
Neuro: Awake and AO x 3
Psych: Calm
Data Reviewed
-
CT Scan: Report Reviewed by me and Discussed with Physician
Labs: Labs Reviewed by me and Discussed with Physician
Old Records: Reviewed
[2025-04-13] MEDS: LIDOCAINE 4% PATCH 1 PATCH TOPICAL (10:47)
--- NOTE | 2025-04-13 12:57 | PTCARENOTE ---
Offers complaints of mild back pain, due to needing to lie flat for post procedure protocol. Discussed patient concerns on rounds, Lidocaine patch ordered, follow up pain assessment --> pt. reports adequate pain relief.
Taken down to IRAD at this time.
--- NOTE | 2025-04-13 13:47 | W.PN.UPDATE ---
Update Note
Progress Note Update
Repeat right main PA pressure 35/15, mean 23. Patient is feeling better, and is less tachycardic compared to yesterday. Will dc tpa. Sheath removed at 1:45 pm, OK to resume anticoagulation around 3:30 pm.
--- NOTE | 2025-04-13 14:30 | PTCARENOTE ---
Pt. returned to ICU from IRAD.
Site reviewed with IR RN, C/D/I no edema.
02 weaned down --> see sp02 flowsheet.
--- NOTE | 2025-04-13 14:39 | PTCARENOTE ---
Addendum entered by Angel Luis Lozano RN 04/13/25 15:52:
Heparin resumed, pt. OOB to chair, Titrated down to RA.
Original Note:
Verbal orders per IRAD doc via TT:
- Ok for OOB 1530.
- TPA gtt via cath can be D/C --> clinical pharmacy notified of changes.
-Heparin gtt (DVT) to be managed by Sales And Production Manager
Sales And Production Manager notified of pt. return. Orders as follows:
-Resume diet
-Cont. heparin gtt per DVT protocol.
[2025-04-13 15:14] LABS: Hematocrit 38.2 % (37.0-47.0); Hemoglobin 12.7 g/dL (12.0-16.0); Mean Corp Hgb Conc. 33.2 g/dL (33.0-37.0); Mean Corpuscular Volume 99.7 fL (81.0-99.0); Platelet Count 140 10^3/uL (130-400); Red Cell Dist. Width 14.6 % (11.5-14.5)
[2025-04-13 15:31] LABS: APTT 26.9 Sec (23.4-35.0)
[2025-04-13] MEDS: REMOVE LIDOCAINE PATCH 1 PATCH REMOVE (21:08)
[2025-04-13 21:34] LABS: Glucose - Point of Care 125 mg/dl (70-99)
[2025-04-13 23:28] LABS: APTT 84.4 Sec (23.4-35.0)
[2025-04-14] VITALS (7 sets, daily range): BP systolic 103–123; BP diastolic 61–76
[2025-04-14] MEDS: HEPARIN 25000 UNITS/250 ML IV ×2 (01:36→19:04)
[2025-04-14 06:45] LABS: APTT 100.3 Sec (23.4-35.0)
[2025-04-14] MEDS: LIDOCAINE 4% PATCH 1 PATCH TOPICAL (09:02)
--- NOTE | 2025-04-14 12:47 | W.PN.HOSP.TC ---
Addendum entered and electronically signed by Christina Badillo MD 04/14/25 13:24:
I saw and evaluated the patient independently. I reviewed the resident�s note and agree with findings and plan as documented by Dr. Swenson.
GENERAL: well developed, well nourished, female in no apparent distress
HEENT: NC/AT--O2 NC
HEART: regular rate and rhythm, +S1, +S2
LUNGS : clear to auscultation bilaterally
ABDOM: soft, nontender, nondistended, + bowel sounds
EXT: no cyanosis, clubbing, or edema
NEUROLOGIC: grossly intact
Acute symptomatic bilateral pulmonary embolism with right heart strain-- due to moderate clot burden--apprec IR/pulm--s/p catheter directed thrombolysis initiated on 04/12/25--Echo with EF 55-60% RV dilated and hypokinetic with decreased RV
function--sheath removed now on IV heparin with pricing for Eliquis done by CM--would keep on IV heparin at least until Wednesday with weaning O2
Back Pain likely due to herniated discs- Patient states it is difficult for her to lie straight on her back--will try Percocet
History of breast cancer--CT suggest mass in the right breast felt to represent a complex postoperative seroma on the previous breast US- Left breast lumpectomy followed by XRT 5 years ago- Right breast - s/p partial mastectomy for intraductal
cancer- Follow up imaging recommended
Essential hypertension--meds as able
Asthma/COPD--no exacerbations
Full code
DVT Proph-- heparin gtt
Original Note:
Today's Communication/Plan
-
- wean oxygen, continue IS
Assessment / Plan
Assessment / Plan
Patient is a 75-year-old female with past medical history significant for hypertension, asthma, COPD and breast cancer s/p lumpectomy and partial mastectomy who presented to ED for evaluation of shortness of breath. Patient reported that she had a
mechanical fall about 1 month ago where she reports falling forward and hit left ribs on chair. Since then she has had intermittent pain since then but reports overall it has been improving. However, she states that she has had increased shortness
of breath over the past week that has been consistent without relief. She stated that she had vomiting, diarrhea and fever for 48-hours prior to arrival which spontaneously resolved. Patient denies any leg pain or edema. Patient notes she takes no
daily medications and will intermittently use clonazepam for sleep.
CT chest showed bilateral pulmonary thromboembolism, moderate clot burden with secondary findings suggesting right heart strain.Mass in the right breast felt to represent a complex postoperative seroma on the previous breast ultrasound.
Assessment/Plan:
# Acute symptomatic bilateral pulmonary embolism s/p TPA with current shortness of breath:
-Tachycardic and hypotensive due to right heart strain due to moderate clot burden
-IR consulted: catheter directed thrombolysis initiated on 04/12/25. Had some difficulty accessing R CFV due to high original so accessed greater saphenous vein with placement of 7F sheath.
-TPA is discontinued. We have started on IV heparin drip for prevention of cloth formation and re-thrombosis. Monitor for signs of bleeding, hypotension and hemoptysis. Plan Heparin drip for minimum 72 hours due initial clinical picture of
hemodynamic instability and clot burden seen on CTA , then transition to oral anticoagulation ( minimum 9 months).
- on lower extremity US, there is thrombus formation in the distal superficial femoral vein which is nonocclusive and in the popliteal, peroneal and posterior tibial veins which is occlusive.
- Echo is benign with a EF of 55-60%.
- Patient short of breath on exam today, currently satting 96% on 4 liters oxygen, ordered weaning parameters for >90% on room air, Ordered incentive spirometry to help improve lung function.
# Back Pain likely due to herniated discs
- Patient states it is difficult for her to lie straight on her back
- Continue lidocaine patch daily, and ordered Percocet prn to help control pain
- Patient is scheduled to get cortisone injection in back with pain specialist, however would need to hold oral anticoagulation before procedure. Advised patient to talk with pain doctor before proceeding with procedure.
# History of breast cancer
CT suggest mass in the right breast felt to represent a complex postoperative seroma on the previous breast US
- Left breast lumpectomy followed by XRT 5 years ago
- Right breast - s/p partial mastectomy for intraductal cancer
- Follow up imaging recommended
- Patient does not have an oncologist. According to her she has doctor who only deals in radiation at [facility].. Will refer her to one upon discharge.
# Essential hypertension
# Asthma
# COPD
Full code
DVT Px: heparin gtt
Anticipated Discharge: 24 - 48 hours
Subjective/Interval History
-
Date of Service: April 14, 2025
Patients states she breathing so much better than arrival to the ED, but still short of breath off oxygen. She is having back pain due to ruptured discs, and it is hard to lay straight on her back, would like to us to adjust her pain medications. No
chest pain, abdominal pain, vomiting or any other symptoms.
Objective Data
-
Labs:
Laboratory Results
04/14/25
05:44
APTT 100.3 H
Vital Signs:
Vital Signs
Temp Pulse Resp BP Pulse Ox
98.1 F 101 16 103/61 96
04/14/25 07:34 04/14/25 07:34 04/14/25 07:34 04/14/25 07:34 04/14/25 07:34
I&O
04/13/25 04/14/25 04/15/25
06:59 06:59 06:59
Intake Total 560 / 616 350 / 350
Output Total 175 / 175
Balance 385 / 441 350 / 350
Review of Systems
-
History Source: Patient
Constitutional: Reports No Symptoms
Respiratory: Reports Trouble Breathing
Cardiac: Reports No Symptoms
Abdomen/GI: Reports Nausea
Genitourinary: Reports No Symptoms
Musculoskeletal: Reports Other (Back pain)
Skin: Reports No Symptoms
Neuro: Reports No Symptoms
Endocrine: Reports No Symptoms
Hematologic / Lymphatic: Reports No Symptoms
Allergy / Immunology: Reports No Symptoms
Physical Exam
-
General: Well Developed, Well Nourished, No Apparent Distress, Comfortable and Conversant
HEENT: Normocephalic, Atraumatic, Moist Mucous Membranes and Anicteric
Respiratory: Clear to Auscultation
Cardiac: Regular Rhythm and S1/S2
GI: Soft, Nontender, Nondistended, Normal Bowel Sounds and No Hepatosplenomegaly
Musculoskeletal: No Clubbing, No Cyanosis, Edema, Right Lower Extrem (1+ pitting) and Edema, Left Lower Extrem (1+ pitting)
Skin: Warm, Dry and Other (ecchymosis over IV sites)
Neuro: Awake and AO x 3
Psych: Calm
Data Reviewed
-
Labs: Labs Reviewed by me and Discussed with Physician
[2025-04-14] MEDS: PERCOCET 5/325 1 TABLET PO ×2 (13:53→22:34)
--- NOTE | 2025-04-14 14:23 | CM ---
CM following for discharge planning needs. Pt currently on O2, weaning in progress.
Snow is ambulatory in her room.
Plan: Watch for home O2 needs. Anticipate discharge to home when medically cleared; likely no sooner than Wednesday.
--- NOTE | 2025-04-14 14:39 | W.PN.PUL3 ---
Today's Communication / Plan
-
- Continue to wean oxygen as tolerated
- Can transition to Eliquis starting 04/15
- Assess for home oxygen need prior to discharge
- Outpatient follow-up with pulmonary clinic. Pulmonary team will sign off, please call as needed
Assessment
-
Patient is a very pleasant 75-year-old female with known history of breast cancer, COPD who presented to emergency room for shortness of breath. Reported history of fall about a month ago, hit her chest and since then has been having intermittent
chest wall pain. Over the last week however patient reports increasing shortness of breath without any cough, wheezing, expectoration, fever or chills. Patient also had brief episode of nausea, vomiting and diarrhea which subsequently resolved
without any intervention. In the emergency room patient was noted to be hypoxic as well as borderline low blood pressure. Initial x-ray was unremarkable and a CT was pursued which was suggestive of bilateral pulmonary embolism, right more than
left, with right heart strain. A PERT alert was called, case discussed with the emergency room and IR physician. In view of borderline hemodynamics, tachycardia, hypoxia, elevated biomarkers and right heart strain on imaging, catheter directed
therapies were pursued. Patient was taken to IR suite and had catheter directed thrombolysis initiated. Postprocedure, patient was admitted to ICU and family support specialist consultation was requested for further input.
#1. Acute Pulmonary embolism, bilateral with Right heart strain, Right lower extremity DVT
- Right heart strain noted on imaging, troponin elevated at 0.191, BNP also elevated at 7910. Patient mildly hypoxic as well as borderline blood pressure.
- PERT was called on 04/12. Patient's imaging were reviewed, recommended catheter directed therapies. Patient was taken to IR suite and had catheter directed thrombolysis initiated.
- Right > Left clot burden on imaging.
- Oxygen requirement continues to improve, transferred out of ICU
- Unprovoked VTE event, also prior history of breast cancer, favor long-term anticoagulation
- Can transition to Eliquis starting 04/15, will arrange outpatient follow-up with pulmonary clinic
#2. Acute hypoxic respiratory failure.
- Due to pulmonary embolism.
-Down to 2 L supplemental oxygen now, significantly improved.
#2. h/o COPD
- No wheezing on exam. Current presentation not consistent with COPD exacerbation
#3. H/o breast cancer.
- Invasive ductal carcinoma of left breast, s/p lumpectomy and radiation in 2017
- Ductal carcinoma in situ, right breast, s/p excision in 2020
- Invasive and in situ ductal carcinoma, right side, s/p segmental mastectomy plus sentinel lymph node biopsy
- Breast mass noted on CT scan felt to be postoperative seroma.
- Continue outpatient follow-up with oncology service, follows up at [facility].
Other medical diagnoses:
- 5 mm Lung nodule. stable since 2013
- Polymyalgia rheumatica, had been on Chronic Prednisone in the past, follows up with rheumatology
- Essential tremors
- History of breast cancer, left-sided, 2017. Ductal carcinoma in situ on right side, 2020.
Total time spent on this consultation/encounter __42__ minutes which includes review of history, physical exam, medications, laboratory data, personal review of imaging, extensive review of outpatient records, discussion with care team and
respiratory therapy.
Subjective Data
-
Date of Service:
Date of Service: April 14, 2025
Subjective:
Patient comfortably lying in bed in no acute distress, down to 2 L supplemental oxygen now
Review of Systems
Genitourinary: Other (All 14 systems reviewed and negative except as stated above in the history of present illness.)
Objective Data
Data Reviewed
Vital Signs / I&O / Oxygen:
Vital Signs
Temp Pulse Resp BP Pulse Ox
98.3 F 77 16 123/76 97
04/14/25 11:00 04/14/25 11:00 04/14/25 11:00 04/14/25 11:00 04/14/25 11:00
Intake and Output
04/13/25 04/14/25 04/15/25
06:59 06:59 06:59
Intake Total 560 / 616 350 / 350
Output Total 175 / 175
Balance 385 / 441 350 / 350
SaO2 97
Nasal Cannula flow liters per 2
minute
Physical Exam
General: Comfortable
HEENT: Normocephalic
Cardiovascular: S1-S2
Respiratory: Clear and Non-Labored Respirations
GI: Soft and Non Distended
Neurology: Awake and Alert
Skin: Warm
Labs/Micro/Reports
Lab Data
04/13/25 14:53
04/13/25 09:58
Laboratory Results
04/13/25 04/13/25 04/14/25
14:53 22:39 05:44
APTT 26.9 84.4 H 100.3 H
[2025-04-14] MEDS: REMOVE LIDOCAINE PATCH 1 PATCH REMOVE (21:09)
[2025-04-15 03:00] VITALS: BP 111/72
[2025-04-15 06:20] LABS: Hematocrit 32.6 % (37.0-47.0); Hemoglobin 10.9 g/dL (12.0-16.0); Mean Corp Hgb Conc. 33.4 g/dL (33.0-37.0); Mean Corpuscular Volume 100.3 fL (81.0-99.0); Platelet Count 117 10^3/uL (130-400); Red Cell Dist. Width 14.6 % (11.5-14.5)
[2025-04-15 07:00] LABS: APTT 169.3 Sec (23.4-35.0)
[2025-04-15 07:08] LABS: Blood Urea Nitrogen 10 mg/dl (7-17); Calcium 7.8 mg/dl (8.4-10.2); Chloride 112 mmol/L (98-107); Estimated Creatinine Clearance 69 ml/min; Glucose 98 mg/dl (70-99); Potassium 3.8 mmol/L (3.5-5.1); Sodium 139 mmol/L (135-145); eGFR > 60.00
[2025-04-15 07:19] LABS: Carbon Dioxide 22 mmol/L (22-30); Magnesium 1.7 mg/dl (1.6-2.3)
[2025-04-15 07:55] VITALS: BP 96/64
[2025-04-15] MEDS: LIDOCAINE 4% PATCH 1 PATCH TOPICAL (07:58)
[2025-04-15 11:36] VITALS: BP 99/71
[2025-04-15] MEDS: PERCOCET 5/325 1 TABLET PO ×2 (13:36→19:56)
--- NOTE | 2025-04-15 13:45 | W.PN.HOSP.TC ---
Addendum entered and electronically signed by Christina Badillo MD 04/15/25 14:56:
I saw and evaluated the patient independently. I reviewed the resident�s note and agree with findings and plan as documented by Dr. Swenson.
GENERAL: well developed, well nourished, female in no apparent distress
HEENT: NC/AT--O2 NC
HEART: regular rate and rhythm, +S1, +S2
LUNGS : clear to auscultation bilaterally
ABDOM: soft, nontender, nondistended, + bowel sounds
EXT: no cyanosis, clubbing, or edema
NEUROLOGIC: grossly intact
Acute symptomatic bilateral pulmonary embolism with right heart strain-- due to moderate clot burden--apprec IR/pulm--s/p catheter directed thrombolysis initiated on 04/12/25--Echo with EF 55-60% RV dilated and hypokinetic with decreased RV
function--sheath removed now on IV heparin with pricing for Eliquis done by CM--would keep on IV heparin until Wednesday with weaning O2 and switch to Eliquis Wednesday with assessment for home O2 at that time
Back Pain likely due to herniated discs- Patient states it is difficult for her to lie straight on her back--will try Percocet
History of breast cancer--CT suggest mass in the right breast felt to represent a complex postoperative seroma on the previous breast US- Left breast lumpectomy followed by XRT 5 years ago- Right breast - s/p partial mastectomy for intraductal
cancer- Follow up imaging recommended
Essential hypertension--meds as able
Asthma/COPD--no exacerbations
Full code
DVT Proph-- heparin gtt
Original Note:
Today's Communication/Plan
-
- wean oxygen, continue IS, and transition to oral anticoagulation tomm.
Assessment / Plan
Assessment / Plan
Patient is a 75-year-old female with past medical history significant for hypertension, asthma, COPD and breast cancer s/p lumpectomy and partial mastectomy who presented to ED for evaluation of shortness of breath. Patient reported that she had a
mechanical fall about 1 month ago where she reports falling forward and hit left ribs on chair. Since then she has had intermittent pain since then but reports overall it has been improving. However, she states that she has had increased shortness
of breath over the past week that has been consistent without relief. She stated that she had vomiting, diarrhea and fever for 48-hours prior to arrival which spontaneously resolved. Patient denies any leg pain or edema. Patient notes she takes no
daily medications and will intermittently use clonazepam for sleep.
CT chest showed bilateral pulmonary thromboembolism, moderate clot burden with secondary findings suggesting right heart strain.Mass in the right breast felt to represent a complex postoperative seroma on the previous breast ultrasound.
Assessment/Plan:
# Acute symptomatic bilateral pulmonary embolism s/p TPA with current shortness of breath:
-Tachycardic and hypotensive due to right heart strain due to moderate clot burden on admission
-IR consulted: catheter directed thrombolysis initiated on 04/12/25. Had some difficulty accessing R CFV due to high original so accessed greater saphenous vein with placement of 7F sheath.
-TPA is discontinued. We have started on IV heparin drip for prevention of cloth formation and re-thrombosis. Monitor for signs of bleeding, hypotension and hemoptysis. Plan Heparin drip for minimum 72 hours ( will transition to eliquis on wednesday
morning) due initial clinical picture of hemodynamic instability and clot burden seen on CTA . Minimum period of oral anticoagulants in 9 months however suspect patient might to be on indefinitely. Explained cost of eliquis to patient.
- on lower extremity US, there is thrombus formation in the distal superficial femoral vein which is nonocclusive and in the popliteal, peroneal and posterior tibial veins which is occlusive.
- Echo is benign with a EF of 55-60%.
- Patient short of breath on exam today, currently satting 96% on 2.5 liters oxygen, continued weaning parameters for >90% on room air,continue incentive spirometry to help improve lung function. Based on our assessment tomm of patients respiratory
status, might need home oxygen.
#Burning micturation and increased frequency of urine due to possible uncomplicated uti:
- Wbc normal and no fever. No suprapubic tenderness on exam. No nausea/vomiting/ lethargy/ fevers/ chills.
- ordered a urinalysis reflex to culture.
# Back Pain likely due to herniated discs
- Patient states it is difficult for her to lie straight on her back
- Continue lidocaine patch daily, and ordered Percocet prn to help control pain. Patients back pain has improved significantly.
- Patient is scheduled to get cortisone injection in back with pain specialist, however would need to hold oral anticoagulation before procedure. Advised patient to talk with pain doctor before proceeding with procedure.
# History of breast cancer
CT suggest mass in the right breast felt to represent a complex postoperative seroma on the previous breast US
- Left breast lumpectomy followed by XRT 5 years ago
- Right breast - s/p partial mastectomy for intraductal cancer
- Follow up imaging recommended
- Patient does not have an oncologist. According to her she has doctor who only deals in radiation at [facility] [place].. Will refer her oncologist in [facility] upon discharge.
# Essential hypertension
# Asthma
# COPD
Full code
DVT Px: heparin gtt
Anticipated Discharge: 24 - 48 hours
Subjective/Interval History
-
Date of Service: April 15, 2025
no overnight events
patient is stating that she has burning and increased frequency when she urinates.
currently on heparin drip.
Objective Data
-
Labs:
Laboratory Results
04/15/25 04/15/25
06:09 15:30
WBC 5.4
Hgb 10.9 L
Hct 32.6 L
Plt Count 117 L
APTT 169.3 H* Pending
Sodium 139
Potassium 3.8
Chloride 112 H
Carbon Dioxide 22
BUN 10
Creatinine 0.7
Glucose 98
Calcium 7.8 L
Vital Signs:
Vital Signs
Temp Pulse Resp BP Pulse Ox
97.9 F 92 18 99/71 91
04/15/25 11:36 04/15/25 11:36 04/15/25 11:36 04/15/25 11:36 04/15/25 11:36
I&O
04/14/25 04/15/25 04/16/25
06:59 06:59 06:59
Intake Total 350 / 350 1200 / 1200
Balance 350 / 350 1200 / 1200
Review of Systems
-
History Source: Patient
Constitutional: Reports No Symptoms
Respiratory: Reports Trouble Breathing
Cardiac: Reports No Symptoms
Abdomen/GI: Reports Nausea
Genitourinary: Reports Dysuria and Frequency; Denies Flank Pain, Difficulty Voiding, Urgency or Dark Urine
Musculoskeletal: Reports Other (Back pain)
Skin: Reports No Symptoms
Neuro: Reports No Symptoms
Endocrine: Reports No Symptoms
Hematologic / Lymphatic: Reports No Symptoms
Allergy / Immunology: Reports No Symptoms
Physical Exam
-
General: Well Developed, Well Nourished, No Apparent Distress, Comfortable and Conversant
HEENT: Normocephalic, Atraumatic, Moist Mucous Membranes and Anicteric
Respiratory: Clear to Auscultation
Cardiac: Regular Rhythm and S1/S2
GI: Soft, Nontender, Nondistended, Normal Bowel Sounds and No Hepatosplenomegaly
Musculoskeletal: No Clubbing, No Cyanosis, Edema, Right Lower Extrem (1+ pitting) and Edema, Left Lower Extrem (1+ pitting)
Skin: Warm, Dry and Other (ecchymosis over IV sites)
Neuro: Awake and AO x 3
Psych: Calm
Data Reviewed
-
Ultrasound: Report Reviewed by me and Discussed with Physician
Labs: Labs Reviewed by me and Discussed with Physician
[2025-04-15 14:19] LABS: Urine Character Slightly Cloudy (Clear)
[2025-04-15 14:32] LABS: Urine Squamous Cell 26-30 /LPF (Few); Urine White Cell 30-40 /HPF (0-5)
[2025-04-15 15:25] VITALS: BP 110/61
[2025-04-15 17:11] LABS: APTT 53.1 Sec (23.4-35.0)
[2025-04-15] MEDS: HEPARIN 25000 UNITS/250 ML IV (17:15)
[2025-04-15 19:12] VITALS: BP 117/66
[2025-04-15] MEDS: REMOVE LIDOCAINE PATCH 1 PATCH REMOVE (19:59)
--- NOTE | 2025-04-15 22:55 | PTCARENOTE ---
Patient in room banging walker on floor. This RN asked patient if she was ok, patient upset and states 'NO'. Patient states she 'needed help to go to the bathroom' Call sharpe was not on. Patient stated the reason she did not turn web content producer sharpe was
because 'no one ever answers it'. This RN has taken patient to and from bathroom multiple times after answering call sharpe. Reminded patient of this to which her response was 'well I did not say you' and that she was 'short tempered today'. RN
educated patient on room safety and call sharpe use. Verified call sharpe was continuing to work correctly. Will monitor.
[2025-04-15 23:18] LABS: APTT 111.1 Sec (23.4-35.0)
[2025-04-15 23:47] VITALS: BP 136/74
[2025-04-16 03:05] VITALS: BP 112/70
[2025-04-16 06:19] LABS: APTT 113.4 Sec (23.4-35.0)
[2025-04-16 06:42] LABS: Blood Urea Nitrogen 9 mg/dl (7-17); Calcium 7.7 mg/dl (8.4-10.2); Carbon Dioxide 21 mmol/L (22-30); Chloride 117 mmol/L (98-107); Estimated Creatinine Clearance 80 ml/min; Glucose 92 mg/dl (70-99); Magnesium 1.8 mg/dl (1.6-2.3); Potassium 3.7 mmol/L (3.5-5.1); Sodium 141 mmol/L (135-145); eGFR > 60.00
[2025-04-16 07:38] VITALS: BP 110/81
--- NOTE | 2025-04-16 07:43 | W.PN.UPDATE ---
Addendum entered and electronically signed by Tom Mane MD 04/16/25 09:34:
correction, pulse ox 96% RA
Original Note:
Update Note
Progress Note Update
I saw and evaluated the patient. I reviewed the resident�s note and agree with findings and plan as documented in the resident�s note.
No new complaints. SOB greatly improved.
Gen: NAD, AAOx3.
Eyes: EOMI, PERRLA, no scleral icterus.
Neck: supple.
CV: RRR, +S1/S2, no m/r/g.
Resp: CTAB, no rales, wheezes, or rhonchi.
Abd: +BS, soft, NT, ND
Skin: No rashes. trace RLE edema
Neuro: CN 2-12 intact, non-focal.
Psych: Normal mood and affect.
CTA chest: Positive for bilateral pulmonary thromboembolism, moderate clot burden with secondary findings suggesting right heart strain. Mass in the right breast felt to represent a complex postoperative seroma on the previous breast ultrasound.
Continued follow-up imaging as recommended in that report.
Echo 04/13/25:
1. Ejection fraction is 55-60% by visual assessment.
2. Compared to a prior transthoracic echocardiogram study from 04/10/13 Right ventricle is dilated and hypokinetic.
3. Mild left ventricular hypertrophy.
4. Mild mitral annular calcification.
5. No regional wall motion abnormalities.
6. Right ventricular cavity size cavity is mildly dilated.
7. Right ventricular systolic function is severely decreased.
Acute hypoxemic respiratory failure due to acute symptomatic B/L PE with RV strain:
-s/p catheter directed thrombolysis initiated on 04/12/25
-was on 12L midflow, now 91% RA
-currently on heparin gtt, transition to Eliquis today
Acute UTI:
-U/A consistent with UTI
-Rocephin 1g IV x 1 now followed by Ceftin for 4 further days (based on previous bacteriology)
Back Pain:
-likely due to herniated discs
-Lidoderm patch, Percocet PRN
Other problems:
h/o breast CA
Asthma, not in acute exac
FULL/Eliquis
Medically cleared for d/c.
Total time spent on d/c = 33 min. This included today's physical exam, progress note, review of laboratory and diagnostic data, preparation of discharge documents and prescriptions, and discussions about the pt's hospital course and discharge plan
with the patient and other medical device assembler involved in the patient's care.
[2025-04-16] MEDS: LIDOCAINE 4% PATCH 1 PATCH TOPICAL (08:07)
[2025-04-16] MEDS: PERCOCET 5/325 1 TABLET PO (08:11)
[2025-04-16] MEDS: ELIQUIS 10 MG PO (08:22)
--- NOTE | 2025-04-16 08:42 | W.PN.HOSP.TC ---
Today's Communication/Plan
-
Transition to PO Eliquis today.
Rocephin 1 Mg IV today, Medically stable for discharge thereafter
Assessment / Plan
Assessment / Plan
Patient is a 75-year-old female with past medical history significant for hypertension, asthma, COPD and breast cancer s/p lumpectomy and partial mastectomy who presented to ED for evaluation of shortness of breath. Patient reported that she had a
mechanical fall about 1 month ago where she reports falling forward and hit left ribs on chair. Since then she has had intermittent pain since then but reports overall it has been improving. However, she states that she has had increased shortness
of breath over the past week that has been consistent without relief. She stated that she had vomiting, diarrhea and fever for 48-hours prior to arrival which spontaneously resolved. Patient denies any leg pain or edema. Patient notes she takes no
daily medications and will intermittently use clonazepam for sleep.
CT chest showed bilateral pulmonary thromboembolism, moderate clot burden with secondary findings suggesting right heart strain.Mass in the right breast felt to represent a complex postoperative seroma on the previous breast ultrasound.
Assessment/Plan:
# Acute symptomatic bilateral pulmonary embolism s/p TPA with current shortness of breath:
Echo is benign with a EF of 55-60%.
- Tachycardic and hypotensive due to right heart strain due to moderate clot burden on admission
- IR consulted: catheter directed thrombolysis initiated on 04/12/25. Had some difficulty accessing R CFV due to high original so accessed greater saphenous vein with placement of 7F sheath.
- TPA is discontinued. Was started on IV heparin drip. Today 04/16/25- Transition to Eliquis 10 mg BID for 7 days, and then 5 mg BID thereafter.
- Was on 12 L midflow, now 96% room air
# Acute UTI:
- Urinalysis consistent with UTI
� Patient given Rocephin 1G IV x 1 now. Will prescribe Ceftin 250 Mg every 12 hours for 4 days
# Back Pain likely due to herniated discs
- Patient states it is difficult for her to lie straight on her back
- Patient was given lidocaine patches and Percocet as needed. Will discharge with lidocaine patch PRN.
- Patient is scheduled to get cortisone injection in back with pain specialist, however would need to hold oral anticoagulation before procedure. Advised patient to talk with pain doctor before proceeding with procedure.
# History of breast cancer
CT suggest mass in the right breast felt to represent a complex postoperative seroma on the previous breast US
- Left breast lumpectomy followed by XRT 5 years ago
- Right breast - s/p partial mastectomy for intraductal cancer
- Follow up imaging recommended
- Patient does not have an oncologist. According to her she has doctor who only deals in radiation at [facility]. Will refer her oncologist in [facility] upon discharge.
# Asthma
-Not in acute exacerbation
#History of breast cancer
Full code
DVT Px: heparin gtt
Anticipated Discharge: Today
Subjective/Interval History
-
Date of Service: April 16, 2025
Patient feels well. No new complaints.
Objective Data
-
Labs:
Laboratory Results
04/15/25 04/16/25 04/16/25
23:01 05:55 13:00
APTT 111.1 H 113.4 H Pending
Sodium 141
Potassium 3.7
Chloride 117 H
Carbon Dioxide 21 L
BUN 9
Creatinine 0.6
Glucose 92
Calcium 7.7 L
Vital Signs:
Vital Signs
Temp Pulse Resp BP Pulse Ox
98.2 F 90 16 110/81 95
04/16/25 07:38 04/16/25 07:38 04/16/25 07:38 04/16/25 07:38 04/16/25 08:16
I&O
04/15/25 04/16/25 04/17/25
06:59 06:59 06:59
Intake Total 1200 / 1200 960 / 960
Balance 1200 / 1200 960 / 960
Review of Systems
-
Constitutional: Reports No Symptoms
EENT: Reports No Symptoms Reported
Respiratory: Reports No Symptoms
Cardiac: Reports No Symptoms
Abdomen/GI: Reports No Symptoms
Breast: Reports No Symptoms
Genitourinary: Reports No Symptoms
Musculoskeletal: Reports No Symptoms
Skin: Reports No Symptoms
Neuro: Reports No Symptoms
Endocrine: Reports No Symptoms
Hematologic / Lymphatic: Reports No Symptoms
Physical Exam
-
General: Well Developed, Well Nourished and No Apparent Distress
HEENT: Normocephalic, Atraumatic, Moist Mucous Membranes and Anicteric
Respiratory: Clear to Auscultation
Cardiac: Regular Rhythm and S1/S2
GI: Soft, Nontender, Nondistended, Normal Bowel Sounds and No Hepatosplenomegaly
Musculoskeletal: No Clubbing, No Cyanosis and Edema, Right Lower Extrem (1+)
Skin: Warm
Neuro: Awake and AO x 3
Psych: Calm
Data Reviewed
-
Labs: Labs Reviewed by me and Discussed with Physician
Old Records: Reviewed
[2025-04-16] MEDS: ROCEPHIN 1000 MG IV (09:11)
[2025-04-16] MEDS: STERILE WATER FOR INJECTION 10 ML IV (09:11)
[2025-04-16] MEDS: FLUSH (NSS) 2 FLUSH IV (09:15)
--- NOTE | 2025-04-16 09:26 | W.DCSUMMARY ---
Discharge Summary
Discharge Data
Date of Admission: 04/12/25
Date of Discharge: 04/16/25
-
Pending Results: No
Hospital Course
Discharging Physician : Dr. Tom Mane and Dr. Paulo Morrow
Disposition : Home
Primary care physician : Dr. Stevenson Nguyen
Principal Discharge diagnosis : Acute symptomatic bilateral pulmonary embolism with right heart strain, UTI
Chronic Discharge diagnosis :
Back pain likely due to herniated disks
History of breast cancer
Asthma
Hospital Course :
75-year-old female with history of hypertension, asthma, COPD and a prior history of breast cancer, status post left breast lumpectomy with radiation and right breast partial mastectomy, who presented to the emergency department with progressive
shortness of breath. She reported that approximately 1 month prior to presentation, she sustained a mechanical fall in which she fell forward and struck her left rib cage against a chair. Since the fall she has experienced intermittent rib pain
which eventually improved. However, over the week prior to admission. She developed persistent worsening shortness of breath that was not relieved with rest. She denied chest pain, leg pain or leg swelling. On presentation, patient was found to
be tachycardic and hypotensive. A CT chest scan revealed bilateral pulmonary emboli with moderate clot burden and imaging features concerning for right heart strain. Given hemodynamic instability and clot burden, interventional radiology was
consulted. Patient underwent catheter directed thrombolysis on 04/12/2025. There was some initial challenges accessing the right common femoral vein, so the right greater saphenous vein was cannulated and a 7F sheath was placed. tPA was
administered during the procedure and subsequently discontinued. She was initiated on IV heparin drip and monitor closely. By day 4, she was transitioned to Eliquis 10 Mg twice daily for 7 days to be followed by 5 Mg twice daily thereafter. Her
respiratory rate improved significantly.
Patient was also found to have a UTI with urinalysis showing evidence of infection. She received a single dose of Rocephin 1 g IV, followed by a prescription for Ceftin 250 Mg twice daily for 4 days on discharge. Patient also endorses ongoing back
pain, which was described as positional and worsened when laying flat. She is was thought to be related to underlying spinal pathology possibly herniated disks. She was treated with lidocaine patches and Percocet as needed for analgesia. She is
scheduled for a corticosteroid injection with the pain specialist and she was advised to consult a provider regarding appropriate timing for holding anticoagulation prior to the procedure.
Patient has history of breast cancer; imaging during this hospitalization incidentally revealed a mass in the right breast, which was thought to represent a complex postoperative seroma in comparison with prior breast ultrasound. She has a history
of left-sided lumpectomy with radiation approximately 5 years ago and a right sided partial mastectomy for intraductal carcinoma. She does not currently follow with a medical oncologist and states her only cancer related provider is a radiation
specialist at [facility]. She was counseled on the importance of ongoing oncologic follow-up and will be referred to [facility] for evaluation and coordination of further imaging.
Patient's asthma and COPD were not actively flaring during this admission. She did not require bronchodilators or steroids and remained stable from a pulmonary standpoint throughout her stay. She was managed to full code during her
hospitalization. For DVT prophylaxis, she was initially put on a heparin drip due to active pulmonary embolism, and this was transitioned to therapeutic anticoagulation with Eliquis as noted above. At the time of discharge, the patient was
hemodynamically stable, saturating well on room air with no active complaints. She was counseled on the importance of adherence to anticoagulation, follow-up with oncology, and monitoring for recurrent symptoms of shortness of breath chest pain or
leg swelling.
Important imaging findings :
CXR 04/12/25: No acute cardiopulmonary process.
CT 04/12/25: Positive for bilateral pulmonary thromboembolism, moderate clot burden with secondary findings suggesting right heart strain. Mass in the right breast felt to represent a complex postoperative seroma on the previous breast ultrasound.
Continued follow-up imaging as recommended in that report.
Peripheral vascular ultrasound 04/14/25: DVT of the right lower extremity.
Procedure findings :
Thrombolysis 04/13/2025:
1. Right pulmonary pressure 35/15, mean 23 mmHg.
2. Despite lack of significant change in the pulmonary arterial pressure compared to yesterday, the catheter was removed due to clinical improvement. Therapeutic anticoagulation will be initiated.
Discharge Plan
-
Patient Disposition: Home (Routine Discharge)
Discharge Diagnosis/Procedures: Acute hypoxemic respiratory failure due to acute symptomatic bilateral pulmonary embolism with right ventricular strain
Condition: Good
Diet: As tolerated
Activity: No restrictions
Driving Restrictions: As prior to admission
Bathing Restrictions: None
Blood Work: CBC, CMP in 1 week (obtain script from PCP)
Referrals:
Krystyna Johnson MD [Active, Pulmonary Medicine] - in one to two months
Stevenson Nguyen DO [Family Provider, Family Practice] - in less than 1 week
Kuldeep Nayak MD [Active, Hematology / Oncology] - in one to two weeks
Prescriptions:
New
Eliquis 5 mg tablet
10 mg PO BID Qty: 68 0RF
Rx Instructions:
10mg BID through 04/22/25PM, then 5mg BID Thereafter
lidocaine 5 % adhesive patch,medicated
1 patch topical DAILY Qty: 30 0RF
acetaminophen 325 mg Tablet
650 mg PO Q4HPRN PRN (Reason: back pain) Qty: 0 0RF
cefuroxime axetil 250 mg tablet
250 mg PO BID Qty: 8 0RF
Continued
clonazepam 1 mg Tablet
1 mg PO HSPRN PRN (Reason: sleep)
Discontinued
naproxen sodium [Aleve] 220 MG tablet
220 mg PO DAILYPRN PRN (Reason: mild pain)
Discharge Orders:
Discharge Patient (As Directed); Ordered 04/16/25
Ordered By: Paulo Morrow
Discharge Date and Time
Discharge Date/Time: 04/16/25 12:26
Print Language: FAROESE
--- NOTE | 2025-04-16 10:14 | RESPNOTE ---
home 02 assessment completed as order
room air 02 sats at rest-96%
ambulating 02 sats on room air-92
pt walked roughly 40 feet and stated she felt her legs were going to give out.
she walked with a rolling walker and with the assistance of 2 people
[2025-04-16 11:06] VITALS: BP 138/88; PULSE 98; O2SAT 94
--- NOTE | 2025-04-16 11:32 | CM ---
Patient discharge home today
IMM explained & signed. In chart
PT rec home health
Reviewed options - prefers [facility]
notified liaison & referral to be placed
PLAN: Home with [facility]
to transport
[2025-04-16 11:47] VITALS: BP 111/80
--- NOTE | 2025-04-16 12:26 | VNURNOTE ---
Home Health Liaison met with patient at bedside to discuss [facility] nurse/therapy, visits, schedule and homebound status. Patient is agreeable and understands that visits at home will be 2-3 x per week to assess and teach medical management.
Patient is aware that [facility] will contact them for start of care in 1-2 days after discharge from . Provided contact number for [facility].
[facility] referral completed in [facility].
== END 2025-04-16 12:26 | disposition home health service (06) | DRG 175 ==
LOC: 3 WEST ACU 18:23
PROVIDERS: Internal Medicine; Nurse Practitioner Family; Radiology Diagnostic Radiology; Radiology Vascular & Interventional Radiology; ADMITTING PHYSICIAN Internal Medicine; ATTENDING PHYSICIAN Internal Medicine; CONSULT PHYSICIAN Internal Medicine; EMERGENCY PHYSICIAN Emergency Medicine; FAMILY PHYSICIAN Family Medicine
PROC: 3E04317 Introduction of Other Thrombolytic into Central Vein, Percutaneous Approach (ICD-10-PCS; 2025-04-12)
PROC: B31S1ZZ Fluoroscopy of Right Pulmonary Artery using Low Osmolar Contrast (ICD-10-PCS; 2025-04-13)
DX: I26.99 Other pulmonary embolism without acute cor pulmonale (principal); J96.01 Acute respiratory failure with hypoxia; N39.0 Urinary tract infection, site not specified; I82.401 Acute embolism and thrombosis of unspecified deep veins of right lower extremity; Z85.3 Personal history of malignant neoplasm of breast; J44.89 Other specified chronic obstructive pulmonary disease; I10 Essential (primary) hypertension; E78.5 Hyperlipidemia, unspecified; G25.0 Essential tremor; K21.9 Gastro-esophageal reflux disease without esophagitis; M35.3 Polymyalgia rheumatica; Z88.5 Allergy status to narcotic agent; Z88.2 Allergy status to sulfonamides; Z87.891 Personal history of nicotine dependence; Z92.3 Personal history of irradiation
CPT/HCPCS: 37214; 71046; 71275; 80048; 80053; 81003; 81015; 82962; 83735; 83880; 84100; 84484; 85025; 85027; 85610; 85730; 87077; 87086; 87186; 93005; 93306; 93970; 94640; 96365; 96375; 97116; 97162; 99291; J2997; Q9967

== ENCOUNTER → 2025-05-11 12:55 | Outpatient (REF) | payer OTHER, SELFPAY ==
[2025-05-11 13:50] LABS: D-Dimer 1.50 ug/mlFEU (0.00-0.50)
== END ==
LOC: REG 12:55
PROVIDERS: ATTENDING PHYSICIAN Internal Medicine Hematology & Oncology; FAMILY PHYSICIAN Family Medicine
DX: I26.09 Other pulmonary embolism with acute cor pulmonale (principal); I82.401 Acute embolism and thrombosis of unspecified deep veins of right lower extremity; Z85.3 Personal history of malignant neoplasm of breast
CPT/HCPCS: 36415; 81240; 81241; 85300; 85305; 85379; 85610; 85613; 85730; 86146; 86147; 86300

== ENCOUNTER → 2025-05-25 08:04 | Outpatient (REF) | payer OTHER, SELFPAY | LOC: WDC 08:04 | PROVIDERS: FAMILY PHYSICIAN Family Medicine | DX: R92.8 Other abnormal and inconclusive findings on diagnostic imaging of breast (principal); C50.911 Malignant neoplasm of unspecified site of right female breast; C50.912 Malignant neoplasm of unspecified site of left female breast | CPT/HCPCS: 76642 ==

== ENCOUNTER → 2025-05-28 14:48 | Outpatient (REF) | payer OTHER, SELFPAY | LOC: RCS 14:48 | PROVIDERS: ATTENDING PHYSICIAN Internal Medicine Cardiovascular Disease; FAMILY PHYSICIAN Family Medicine | DX: Z86.711 Personal history of pulmonary embolism (principal); I51.9 Heart disease, unspecified | CPT/HCPCS: 93306 ==